=== PATIENT | male | born 2000 | race Caucasian/White ===

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

== ENCOUNTER 2021-04-14 11:27 | Emergency (ER) | payer OTHER, SELFPAY ==
[2021-04-14 11:28] VITALS: BP 104/60; PULSE 68; RESP 18; TEMP 36.8; O2SAT 98; BMI 22.8
--- NOTE | 2021-04-14 11:38 | RAD_ITS ---
STUDY: X-RAY - LEFT KNEE REASON FOR EXAM: Male, 20 years old. fell last night, lateral knee pain TECHNIQUE: 5 view(s) of the knee. COMPARISON: None. FINDINGS: Normal visualized distal femur. Normal visualized proximal tibia and fibula. Normal proximal tibiofibular articulation. Normal medial femorotibial compartment. Normal lateral femorotibial compartment. Normal patellofemoral articulation. The soft tissue structures are unremarkable. RAD/Knee 4 or More Views IMPRESSION: Normal x-ray examination of the knee. Electronically Signed: Kamar Ann MD at 12:21 EDT Tel , Service support ,
--- NOTE | 2021-04-14 12:05 | ED.VIS.LOWEX ---
HPI History of Present Illness Chief Complaint: Lower Extremity Injury Informant: patient Narrative Narrative: 20-year-old male fell down some concrete steps on Thursday night. Injuring the left knee. Is been painful to bear weight. He notes tenderness over the proximal medial knee. States he is not able to fully bend the knee. PFSH PFSH Allergy/AdvReac Type Severity Reaction Status Date / Time No Known Allergies Allergy Verified 04/14/21 11:30 Social History (Updated 04/14/21 @ 12:[address] Prasad Gale, DO) Smoking Status: Never smoker substance use type: does not use ROS ROS ED Constitutional Constitutional ED: Denies chills or weight loss Eyes Eyes: Denies change in vision or diplopia ENT ENT ED: Denies ear pain, rhinorrhea or sore throat Cardiovascular Cardiovascular: Denies chest pain, orthopnea, palpitations or racing heartbeat Respiratory/Chest Respiratory/Chest: Denies cough, dyspnea or orthopnea Gastrointestinal Gastrointestinal: Denies abdominal pain, diarrhea, nausea or vomiting Genitourinary Genitourinary ED: Denies dysuria, hematuria or urinary frequency Musculoskeletal Musculoskeletal: Reports other Details: See history of present illness ; Denies arthralgias or myalgias Integumentary Denies abscess or rash Neurologic Neurologic: Denies headache(s) or weakness Psychiatric Psychiatric: Denies anxiety, depression, suicidal ideation or suicidal thoughts Endocrine Endocrinology: Denies polydipsia, polyphagia or polyuria Allergic/Immunologic Allergic/Immunologic ED: Denies mouth swelling, tongue swelling or urticaria EXAM Physical Exam Const Vital Signs: 04/14/21 11:28 Temperature 98.2 F Temperature Source Temporal Pulse Rate 68 Respiratory Rate 18 Blood Pressure 104/60 Blood Pressure Mean 74 Pulse Ox 98 Oxygen Delivery Method Room Air Positive well nourished and well developed General Appearance ED: well developed HEENT Reports normocephalic, head/scalp atraumatic and moist mucous membranes Eyes PERRL and EOMs intact bilaterally Neck no lymphadenopathy, supple and no JVD Resp normal respiratory effort and clear to auscultation bilaterally Cardio regular rate, regular rhythm and no murmurs GI normal to inspection, nondistended, normoactive bowel sounds and non-tender Palpation: soft Back/Spine no CVA tenderness and normal ROM Extremity Extremity Narrative: Very focal tenderness to palpation over the medial femoral condyle. Negative stress testing of the ligaments. No palpable effusion. General Extremety ED: Negative for edema General Extremity: Negative for edema Neuro oriented x3 and CN's II-XII intact bilaterally Sensorium / Orientation: alert Motor Exam: strength 5/5 throughout Psych mental status grossly normal Mood & Affect: Negative for depressed or tearful Skin no rashes or lesions noted and no wounds MDM MDM MDM Narrative Medical decision making narrative: My interpretation of the plain films of the left knee is no acute fracture. Patient will be discharged home with supportive care. Restrictions to return if worsening or concerns Discharge Plan Triage Chief Complaint: Lower Extremity Injury ED Provider: Prasad Gale Dx/Rx/DC Orders Clinical Impression: Contusion of knee, left Instructions: Bone Contusion Primary Care Provider: Jason Suggs Referrals: Jason Suggs MD [Primary Care Provider] - 10-14 Days if not better Disposition Disposition: Home, Self Care
== END 2021-04-14 12:18 | disposition home or self-care (01) ==
LOC: ED 12:17
PROVIDERS: Emergency Provider Emergency Medicine; PCP Family Medicine
DX: S80.02XA Contusion of left knee, initial encounter (principal); W10.9XXA Fall (on) (from) unspecified stairs and steps, initial encounter
CPT/HCPCS: 73564; 99282

== ENCOUNTER 2021-10-30 09:34 | Emergency (ER) | payer OTHER, SELFPAY ==
[2021-10-30 09:35] VITALS: BP 123/64; PULSE 76; RESP 14; TEMP 37; O2SAT 98; BMI 21.3
--- NOTE | 2021-10-30 09:47 | CT_ITS ---
STUDY: CT ABDOMEN AND PELVIS WITH CONTRAST REASON FOR EXAM: Male, 20 years old. Periumbilical pain with radiation into the right lower quadrant. RADIATION DOSAGE (If Supplied By Facility): CTDIvol = ( 14.19 ) mGy, DLP = ( 743.92 ) mGycm TECHNIQUE: Transaxial images were obtained from the dome of the diaphragm to the symphysis pubis without oral contrast. Oral and amp; IV Gastrografin and amp; 100mL Isovue-300 was administered. Sagittal and coronal images were reconstructed. Individualized dose optimization techniques were used for this CT. COMPARISON: None. FINDINGS: The visualized lung bases are unremarkable. The visualized portions of the heart are within normal limits. Normal liver. Normal gallbladder and extrahepatic biliary system. Normal spleen. Normal pancreas. Normal bilateral adrenal glands. Normal right kidney. Normal left kidney. Normal visualized stomach. Normal small intestine. Normal colon. The appendix is visualized and appears normal. Normal abdominal aorta. Normal inferior vena cava. Normal retroperitoneum. There is diffuse thickening of the urinary bladder wall with increased markings in the surrounding fat. This is suggestive of a cystitis. Normal abdominal wall. Normal osseous structures. CT/Abdomen/Pelvis WITH Contrast IMPRESSION: Findings suggestive of cystitis. Electronically Signed: Aaron Senior MD at 11:56 EDT ,
--- NOTE | 2021-10-30 09:48 | ED.VIS.GI ---
HPI HPI - GI History of Present Illness Chief Complaint: Abd Pain Detail of Chief Complaint: Abdominal pain off-and-on x1 week Informant: patient Narrative Narrative: Patient presents to the emergency department complaint of abdominal pain that he has had for about a week. Patient states that he thinks the pain sometimes goes away or just does not notice it. Pain usually worse in the morning. This morning pain more severe to the right lower quadrant and is worried about his appendix. Patient's had nausea but no vomiting. Patient has had some watery stools intermittently. Patient feels like he is not completely emptying his bowels. Had a small bowel movement yesterday that was watery. He denies any fevers. Food does not seem to affect his pain. Denies loss of appetite. PFSH PFSH Medical History no medical history Allergy/AdvReac Type Severity Reaction Status Date / Time No Known Allergies Allergy Verified 10/30/21 09:35 Surgical History no surgical history Social History (Updated 04/14/21 @ 12:[address] Prasad Gale, DO) Smoking Status: Never smoker substance use type: does not use ROS ROS ED Constitutional Constitutional ED: Reports systems reviewed and no addt'l complaints, except as documented; Denies body ache(s), change in weight or chills Eyes Eyes: Denies acute decrease in peripheral vision, change in vision, double vision or loss of vision ENT ENT ED: Reports none; Denies ear pain, lip swelling, loss taste/smell, neck pain, otalgia or sore throat Cardiovascular Cardiovascular: Reports none; Denies abdominal pain, chest pain with activity, leg edema, lightheadedness, palpitations, rapid heart rate or syncope Respiratory/Chest Respiratory/Chest: Reports none; Denies change in mental status, dry cough, dyspnea, hemoptysis, shortness of breath at rest or shortness of breath with exertion Gastrointestinal Gastrointestinal: Reports none, abdominal pain, diarrhea and nausea; Denies change in stool character, hematemesis, hematochezia, melena, rectal bleeding or vomiting Genitourinary Genitourinary ED: Reports none; Denies abdominal discomfort, anuria, dysuria, genital pain or polyuria Musculoskeletal Musculoskeletal: Reports none; Denies arthralgias, back pain, difficulty walking, extremity pain, muscle weakness or myalgias Integumentary Reports none; Denies abscess or rash Neurologic Neurologic: Reports none; Denies abnormal gait, confusion, focal weakness, frequent falls, headache(s), loss of vision, numbness, paresthesias, radicular pain, vertigo or weakness Psychiatric Psychiatric: Reports systems reviewed and no addt'l complaints, except as documented and none; Denies behavioral changes, confusion, difficulty concentrating, hallucinations, suicidal ideation, tactile hallucinations or visual hallucinations Endocrine Endocrinology: Denies none, cold intolerance, excessive sweating, fatigue or heat intolerance Hematologic/Lymphatic Hematologic/Lymphatic: Reports none; Denies anemia, easy bleeding or easy bruising Allergic/Immunologic Allergic/Immunologic ED: Denies as per HPI, none, lip swelling, mouth swelling, throat swelling, tongue swelling or hives EXAM Physical Exam Const Vital Signs: 10/30/21 09:35 Temperature 98.6 F Temperature Source Temporal Pulse Rate 76 Respiratory Rate 14 Blood Pressure 123/64 H Blood Pressure Mean 83 Pulse Ox 98 Oxygen Delivery Method Room Air Positive well nourished and well developed General Appearance ED: well developed and NAD HEENT Reports TM's clear and moist mucous membranes normocephalic and atraumatic; Negative for trauma or tenderness Tympanic Membrane ED: Yes TM's clear Eyes PERRL and EOMs intact bilaterally General Eye ED: Negative for pale conjunctiva or scleral icterus Neck no lymphadenopathy, supple and no JVD General: Negative for tenderness Chest Wall inspection of chest normal and palpation of chest normal Chest: Negative for tenderness Resp normal respiratory effort and clear to auscultation bilaterally Effort and Inspection: Negative for respiratory distress or pain with movement Auscultation: Negative for rhonchi, wheezes or diminished lung sounds Cardio regular rate, regular rhythm, S1 normal heart sound, S2 normal heart sound and no murmurs Peripheral Pulses: pulses 2+ throughout GI normal to inspection, nondistended, normoactive bowel sounds, soft to palpation, non-distended and no masses GI Narrative: Patient with tenderness palpation over right lower quadrant with guarding. No rebound, rigidity, or peritoneal signs. Back/Spine no CVA tenderness and no thoracic nor lumbar tenderness Extremity normal to inspection General Extremety ED: Negative for edema General Extremity: Negative for edema Neuro oriented x3, CN's II-XII intact bilaterally, no sensory deficits noted and gait normal Sensorium / Orientation: awake, alert, oriented to person, oriented to place and oriented to time Motor Exam: strength 5/5 throughout and strength abnormal Psych mental status grossly normal Skin no rashes or lesions noted and no wounds MDM MDM MDM Narrative Medical decision making narrative: IV line established on arrival. Patient was given Zofran for nausea. He denies anything for pain. Lab work-up was normal. Urinalysis normal. CT scan with IV and p.o. contrast showed a thickened bladder wall with concern for possible cystitis otherwise nothing acute. Given that the patient's urine is normal I do not feel patient has cystitis and the etiology of the bladder wall thickening is unclear. I suspect patient may have a viral gastroenteritis type illness. He did not want thing for nausea for home. He will take ibuprofen or Tylenol for discomfort and he is advised to push fluids. Patient to follow-up with his primary care physician within next 3 to 5 days. Lab Data Attestation: I reviewed the patient's lab results. Labs: Laboratory Results - last 24 hr 10/30/21 10/30/21 10/30/21 09:46 10:10 10:10 WBC 8.5 RBC 5.21 Hgb 16.0 Hct 46.0 MCV 88.3 MCH 30.7 MCHC 34.8 RDW Std Deviation 40.5 RDW Coeff of Emmett 12.3 Plt Count 267 MPV 9.5 Immature Gran % (Auto) 0.200 Neut % (Auto) 64.5 Lymph % (Auto) 22.1 [place] % (Auto) 9.4 Eos % (Auto) 3.3 Baso % (Auto) 0.5 Absolute Neuts (auto) 5.5 Absolute Lymphs (auto) 1.87 Nucleated RBC % 0 Sodium 138 Potassium 4.1 Chloride 101 Carbon Dioxide 32.0 Anion Gap 5 BUN 15 Creatinine 0.95 Estim Creat Clear Calc 114.91 Est GFR (MDRD) Af Amer 128 Est GFR (MDRD) Non-Af 106 BUN/Creatinine Ratio 15.8 Glucose 100 Calcium 9.6 Urine Color Yellow Urine Clarity Clear Urine pH 8.0 Ur Specific [place] 1.015 Urine Protein Negative Urine Glucose (UA) Normal Urine Ketones Negative Urine Occult Blood Negative Urine Nitrite Negative Urine Bilirubin Negative Urine Urobilinogen Normal Ur Leukocyte Esterase Negative Urine RBC 0 SEEN Urine WBC 0 SEEN Ur Squamous Epith Cells 0 SEEN Urine Bacteria 0 SEEN Urine Mucus 0 SEEN Radiography Diagnostic Testing: Clinical Impression(s) from Imaging Studies Abdomen/Pelvis CT 10/30/21 09:47 IMPRESSION: Findings suggestive of cystitis. Electronically Signed: Aaron Senior MD at 11:56 EDT , Discharge Plan Triage Chief Complaint: Abd Pain ED Provider: Susan Pope Dx/Rx/DC Orders Clinical Impression: Abdominal pain Instructions: ED Abdominal Pain Unkn Cause Male..., Viral Gastroenteritis Primary Care Provider: Jason Suggs Referrals: Jason Suggs MD [Primary Care Provider] - 3-5 Days Disposition Disposition: Home, Self Care
[2021-10-30 09:56] LABS: Bacteria 0 SEEN /hpf (None Seen); Mucous, Urine 0 SEEN /hpf (<or=2+); Red Blood Cells-Urine 0 SEEN /hpf (0-5); Squamous Epithelial Cells - UA 0 SEEN /hpf (0-5); White Blood Cells 0 SEEN /hpf (0-5)
[2021-10-30 10:06] LABS: Color, Urine Yellow (Yellow); Glucose, Dipstick Normal (Normal); Ketone-Dipstick Negative (Negative); Leukocyte Esterase-Dipstick Negative /ul (Negative); Nitrite-Dipstick Negative (Negative); Occult Blood-Urine Negative /ul (Negative); Protein-Dipstick Negative (Negative); Specific Gravity, Urine 1.015 (1.002-1.030); Urine Bilirubin Dipstick Negative (Negative); Urine Clarity Clear (Clear); Urine Urobilinogen Normal (Normal)
[2021-10-30] MEDS: Ondansetron 4 MG/2 ML Vial IV (10:13)
[2021-10-30] MEDS: 0.9% Normal Saline 1,000 ML 125 ML IV (10:13)
[2021-10-30 10:19] LABS: Absolute Lymphocyte Count 1.87 X10^3/uL (0.83-4.51); Absolute Neutrophil Count 5.5 X10^3/uL (2.0-7.7); Basophil# 0.04 X10^3/uL; Basophil% 0.5 % (0-1); Eosinophil# 0.28 X10^3/uL; Eosinophils% 3.3 % (0-5); Lymphocyte # 1.87 X10^3/ul (0.83-4.51); Lymphocyte % 22.1 % (19-41); Mean Corp Hgb Conc 34.8 g/dL (32-36); Mean Corpuscular Hgb 30.7 pg (27.0-32.0); Mean Corpuscular Volume 88.3 fL (80-94); Mean Platelet Vol. 9.5 fl (6.2-12.0); Monocyte% 9.4 % (0-10); NRBC Flagged by Analyzer 0 % (0-5); Neutrophil # 5.46 X10^3/uL (2.7-7.7); Neutrophil % 64.5 % (47-70); Platelet Count 267 K/mm3 (150-450); RBC Distribution Width CV 12.3 % (11.6-14.6); RBC Distribution Width SD 40.5 fl (35.1-43.9); Red Blood Count 5.21 M/mm3 (4.6-6.2); White Blood Count 8.5 K/mm3 (4.4-11.0)
[2021-10-30 10:37] LABS: Anion Gap 5 (5-15); BUN 15 mg/dL (7-18); BUN/Creat Ratio 15.8 RATIO (10-20); Calcium,Total 9.6 mg/dL (8.5-10.1); Chloride 101 mmol/L (98-107); Creatinine, Serum 0.95 mg/dL (0.70-1.30); EST Glomerular Filtration Rate 106 mL/min (>60); Est Glom Filt Rate - Afr Amer 128 mL/min (>60); Estimated Creatinine Clearance 114.91 ml/min; Glucose 100 mg/dL (74-106); Potassium 4.1 mmol/L (3.5-5.1); Sodium Level 138 mmol/L (136-145)
== END 2021-10-30 12:27 | disposition home or self-care (01) ==
PROVIDERS: Emergency Provider Emergency Medicine; PCP Family Medicine; Visit Provider Emergency Medicine
DX: R10.31 Right lower quadrant pain (principal); R11.0 Nausea
CPT/HCPCS: 74177; 80048; 81001; 85025; 96361; 96374; 99283; J7030; Q9967; A4216; J2405

== ENCOUNTER → 2022-07-01 | Outpatient (CLI) | payer OTHER, SELFPAY ==
--- NOTE | 2022-07-01 18:40 | RAD_ITS ---
STUDY: X-RAY CHEST REASON FOR EXAM: Male, 21 years old. CHRONIC COUGH TECHNIQUE: PA and lateral views of the chest. COMPARISON: April 02, 2014 FINDINGS: The lungs are clear and hyper expanded. There is no demonstrated pleural abnormality. Normal size heart. Normal mediastinum and paras. Normal visualized pulmonary arteries. Normal visualized aortic arch and descending thoracic aorta. Normal visualized thoracic spine. Normal visualized ribs, clavicles, and shoulders. There is no demonstrated abnormality of the visualized soft tissue structures of the upper abdomen. RAD/Chest PA and Lateral IMPRESSION: Stable hyperexpansion. No focal infiltrate. Electronically Signed: Derrick Proctor MD at 19:54 EST ,
== END | disposition home or self-care (01) ==
LOC: RAD 18:36
PROVIDERS: PCP Family Medicine; Visit Provider Family Medicine
DX: R05.3 Chronic cough (principal)
CPT/HCPCS: 71046

== ENCOUNTER → 2022-08-06 | Outpatient (CLI) | payer OTHER, SELFPAY ==
[2022-08-06 15:08] LABS: Absolute Lymphocyte Count 1.95 X10^3/uL (0.83-4.51); Absolute Neutrophil Count 3.2 X10^3/uL (2.0-7.7); Basophil# 0.07 X10^3/uL; Eosinophil# 1.42 X10^3/uL; Eosinophils% 19.6 % (0-5); Hematocrit 46.4 % (40-54); Hemoglobin 15.3 g/dL (13.0-16.5); Lymphocyte # 1.95 X10^3/ul (0.83-4.51); Lymphocyte % 26.9 % (19-41); Mean Corpuscular Hgb 29.2 pg (27.0-32.0); Mean Corpuscular Volume 88.5 fL (80-94); Mean Platelet Vol. 9.9 fl (6.2-12.0); Monocyte# 0.63 X10^3/uL; Monocyte% 8.7 % (0-10); NRBC Flagged by Analyzer 0 % (0-5); Neutrophil # 3.18 X10^3/uL (2.7-7.7); Neutrophil % 43.7 % (47-70); Platelet Count 236 K/mm3 (150-450); RBC Distribution Width SD 42.1 fl (35.1-43.9); Red Blood Count 5.24 M/mm3 (4.6-6.2); White Blood Count 7.3 K/mm3 (4.4-11.0)
[2022-08-06 15:41] LABS: ALB/GLOB Ratio 1.4 RATIO (0.9-2.4); AST(SGOT) 19 U/L (15-37); Alanine Aminotransfer ALT/SGPT 31 U/L (16-61); Albumin, Serum 4.2 g/dL (3.2-5.0); Alkaline Phosphatase 78 U/L (45-117); Anion Gap 4 (5-15); BUN 11 mg/dL (7-18); BUN/Creat Ratio 11.1 RATIO (10-20); Calcium,Total 9.5 mg/dL (8.5-10.1); Chloride 104 mmol/L (98-107); Creatinine, Serum 0.99 mg/dL (0.70-1.30); EST Glomerular Filtration Rate 100 mL/min (>60); Est Glom Filt Rate - Afr Amer 121 mL/min (>60); Glucose 84 mg/dL (74-106); Potassium 4.5 mmol/L (3.5-5.1); Protein, Total 7.2 g/dL (6.4-8.2); Sodium Level 139 mmol/L (136-145); Thyroid Stim Hormone (TSH) 0.74 uIU/mL (0.358-3.74)
== END | disposition home or self-care (01) ==
LOC: MTLAB 12:32
PROVIDERS: PCP Family Medicine; Referring Provider Family Medicine; Visit Provider Family Medicine
DX: R05.3 Chronic cough (principal)
CPT/HCPCS: 36415; 80053; 84443; 85025

== ENCOUNTER 2023-01-06 19:58 | Emergency (ER) | payer OTHER, SELFPAY ==
[2023-01-06 19:59] VITALS: BP 133/70; PULSE 95; RESP 16; TEMP 37.2; O2SAT 98; BMI 21.2
[2023-01-06 20:27] LABS: Bacteria 0 SEEN /hpf (None Seen); Mucous, Urine 0 SEEN /hpf (<or=2+); White Blood Cells 0 SEEN /hpf (0-5)
[2023-01-06 20:34] LABS: Color, Urine Straw (Yellow); Glucose, Dipstick Normal (Normal); Ketone-Dipstick Negative (Negative); Leukocyte Esterase-Dipstick Negative /ul (Negative); Nitrite-Dipstick Negative (Negative); Occult Blood-Urine 25 /ul (Negative); Protein-Dipstick 30 mg/dl (Negative); Specific Gravity, Urine 1.005 (1.002-1.030); Urine Bilirubin Dipstick Negative (Negative); Urine Clarity Sl. Cloudy (Clear); Urine Urobilinogen Normal (Normal); Urine pH 6.5 (5.0 - 8.0)
[2023-01-06 20:40] LABS: Red Blood Cells-Urine 0-5 SEEN /hpf (0-5); Squamous Epithelial Cells - UA 0-5 SEEN /hpf (0-5)
[2023-01-06 20:41] LABS: Amorphous Sediment 1+ URATE
--- NOTE | 2023-01-06 20:43 | CT_ITS ---
STUDY: CT ABDOMEN AND PELVIS WITHOUT CONTRAST REASON FOR EXAM: Male, 22 years old. Kidney Stone RADIATION DOSAGE (If Supplied By Facility): CTDIvol = ( 6.04 ) mGy, DLP = ( 286.91 ) mGycm TECHNIQUE: Transaxial images were obtained from the dome of the diaphragm to the symphysis pubis without oral contrast, and without intravenous contrast. Sagittal and coronal images were reconstructed. Individualized dose optimization techniques were used for this CT. COMPARISON: December 30, 2022. FINDINGS: The visualized lung bases are unremarkable. The visualized portions of the heart are within normal limits. Normal liver. Normal gallbladder and extrahepatic biliary system. Normal spleen. Normal pancreas. Normal bilateral adrenal glands. No evidence for right renal obstruction or mass effect. Tiny nonobstructing calculus in the upper pole left kidney. No evidence for renal obstruction or mass.. Normal visualized stomach. Nonspecific ileus with diffuse fecal retention throughout the colon.. No evidence for acute appendicitis Normal abdominal aorta. Normal inferior vena cava. Normal retroperitoneum. Normal urinary bladder. Trace of free fluid in the pelvis on the right of uncertain etiology and clinical significance Normal abdominal wall. Normal osseous structures. CT/Abdomen/Pelvis without Cont IMPRESSION: Left nephrolithiasis without evidence for hydronephrosis or ureteral calculus.. Nonspecific ileus with diffuse fecal retention in the colon. Trace of fluid in the right pelvis of indeterminate etiology and clinical significance.. Electronically Signed: Ventura Benavidez MD at 21:29 EDT ,
[2023-01-06 20:49] LABS: Absolute Lymphocyte Count 1.69 X10^3/uL (0.83-4.51); Basophil# 0.03 X10^3/uL; Basophil% 0.2 % (0-1); Eosinophil# 0.18 X10^3/uL; Eosinophils% 1.5 % (0-5); Hematocrit 46.1 % (40-54); Hemoglobin 15.5 g/dL (13.0-16.5); Lymphocyte # 1.69 X10^3/ul (0.83-4.51); Mean Corp Hgb Conc 33.6 g/dL (32-36); Mean Corpuscular Volume 89.2 fL (80-94); Mean Platelet Vol. 10.1 fl (6.2-12.0); Monocyte# 1.11 X10^3/uL; Monocyte% 9.2 % (0-10); NRBC Flagged by Analyzer 0 % (0-5); Neutrophil # 8.99 X10^3/uL (2.7-7.7); Neutrophil % 74.7 % (47-70); Platelet Count 225 K/mm3 (150-450); RBC Distribution Width CV 12.4 % (11.6-14.6); RBC Distribution Width SD 41.1 fl (35.1-43.9); Red Blood Count 5.17 M/mm3 (4.6-6.2); White Blood Count 12.1 K/mm3 (4.4-11.0)
[2023-01-06 20:57] LABS: Anion Gap 9 (5-15); BUN 14 mg/dL (7-18); BUN/Creat Ratio 12.7 RATIO (10-20); Calcium,Total 9.3 mg/dL (8.5-10.1); Chloride 106 mmol/L (98-107); EST Glomerular Filtration Rate 89 mL/min (>60); Est Glom Filt Rate - Afr Amer 108 mL/min (>60); Estimated Creatinine Clearance 97.32 ml/min; Glucose 177 mg/dL (74-106); Potassium 3.7 mmol/L (3.5-5.1); Sodium Level 140 mmol/L (136-145)
--- NOTE | 2023-01-06 21:07 | EDS_ITS ---
HPI HPI - GI History of Present Illness Chief Complaint: Flank Pain Narrative Narrative: 22-year-old male presenting with right flank/right left-sided abdominal pain since this morning. He states he woke up at about 630. He is felt nauseous from time to time. He has not vomited. No diarrhea or constipation. No history of kidney stones. No dysuria or hematuria. No fever or chills. He states he is otherwise healthy. [facility] Medical History Asthma Home Medications polyethylene glycol 3350 17 gram oral powder packet (Miralax) 17 g PO DAILY PRN constipation #14 ea 01/06/23 [Rx Last Taken Unknown] Allergy/AdvReac Type Severity Reaction Status Date / Time No Known Allergies Allergy Verified 01/06/23 20:01 Social History Smoking Status: Never smoker substance use type: does not use ROS ROS ED Constitutional Constitutional ED: Denies chills, fever(s) or sweats Eyes Eyes: Denies blurry vision or change in vision ENT ENT ED: Denies ear pain or sore throat Cardiovascular Cardiovascular: Denies chest pain, palpitations or racing heartbeat Respiratory/Chest Respiratory/Chest: Denies cough, dyspnea or sputum Gastrointestinal Gastrointestinal: Reports abdominal pain and nausea; Denies constipation, diarrhea or vomiting Genitourinary Genitourinary ED: Denies dysuria, hematuria or urinary frequency Musculoskeletal Musculoskeletal: Reports back pain; Denies arthralgias, myalgias or neck pain Integumentary Denies abscess, Abrasions or rash Neurologic Neurologic: Denies headache(s), paresthesias or weakness Psychiatric Psychiatric: Denies anxiety, depression, suicidal ideation or suicidal thoughts Endocrine Endocrinology: Denies polydipsia or polyuria EXAM Physical Exam Const Vital Signs: 01/06/23 19:59 01/06/23 20:13 Temperature 99.0 F Temperature Source Temporal Pulse Rate 95 Respiratory Rate 16 Respiratory Effort Normal Non-Labored Respiratory Pattern Normal Blood Pressure 133/70 H Blood Pressure Mean 91 Pulse Ox 98 Oxygen Delivery Method Room Air Positive well nourished General Appearance ED: Negative for pallor HEENT Reports moist mucous membranes Eyes PERRL and EOMs intact bilaterally Resp normal respiratory effort Auscultation: Negative for rales, rhonchi or wheezes Cardio regular rate and regular rhythm GI Palpation: tender RLQ Back/Spine General Back: CVA tenderness right Neuro CN's II-XII intact bilaterally Sensorium / Orientation: alert Psych mental status grossly normal Skin General Skin Exam: Negative for jaundice or pallor MDM MDM MDM Narrative Medical decision making narrative: Patient presenting with right-sided flank pain. No history of kidney stones. He does have some mild CVA tenderness and right lower quadrant tenderness. Patient medicated with Toradol and Zofran. Differential includes kidney stone, UTI, pyelonephritis, colitis, appendicitis. CBC to be obtained to assess white blood cell count, hemoglobin, platelets, differential. BMP to assess renal function, electrolytes, glucose, anion gap. Urinalysis to assess for UTI versus occult blood. CBC shows mild leukocytosis 12.1. Hemoglobin hematocrit are stable. Platelets are normal. Renal function electrolytes within normal limits. Urinalysis shows some 25 occult blood. No evidence of infection. CT of the abdomen pelvis without contrast shows no kidney stones. CT negative for appendicitis as well. CT does show diffuse fecal retention. Patient was counseled on this. Patient be started on MiraLAX for home. Return precautions were discussed. Impression: 1. Constipation 2. Flank pain 3. Abdominal pain Lab Data Labs: Laboratory Results - last 24 hr 01/06/23 01/06/23 01/06/23 20:10 20:10 20:24 WBC 12.1 H RBC 5.17 Hgb 15.5 Hct 46.1 MCV 89.2 MCH 30.0 MCHC 33.6 RDW Std Deviation 41.1 RDW Coeff of [place] 12.4 Plt Count 225 MPV 10.1 Immature Gran % (Auto) 0.400 Neut % (Auto) 74.7 H Lymph % (Auto) 14.0 L [place] % (Auto) 9.2 Eos % (Auto) 1.5 Baso % (Auto) 0.2 Absolute Neuts (auto) 9.0 H Absolute Lymphs (auto) 1.69 Nucleated RBC % 0 Sodium 140 Potassium 3.7 Chloride 106 Carbon Dioxide 25.0 Anion Gap 9 BUN 14 Creatinine 1.10 Estim Creat Clear Calc 97.32 Est GFR (MDRD) Af Amer 108 Est GFR (MDRD) Non-Af 89 BUN/Creatinine Ratio 12.7 Glucose 177 H Calcium 9.3 Urine Color Straw Urine Clarity Sl. Cloudy Urine pH 6.5 Ur Specific [place] 1.005 Urine Protein 30 H Urine Glucose (UA) Normal Urine Ketones Negative Urine Occult Blood 25 H Urine Nitrite Negative Urine Bilirubin Negative Urine Urobilinogen Normal Ur Leukocyte Esterase Negative Urine RBC 0-5 SEEN Urine WBC 0 SEEN Ur Squamous Epith Cells 0-5 SEEN Amorphous Sediment 1+ URATE Urine Bacteria 0 SEEN Urine Mucus 0 SEEN Radiography Diagnostic Testing: Clinical Impression(s) from Imaging Studies Abdomen/Pelvis CT 01/06/23 20:43 IMPRESSION: Left nephrolithiasis without evidence for hydronephrosis or ureteral calculus.. Nonspecific ileus with diffuse fecal retention in the colon. Trace of fluid in the right pelvis of indeterminate etiology and clinical significance.. Electronically Signed: Ventura Benavidez MD at 21:29 EDT Reading Location ID and State: [address] [address] , Service support , Discharge Plan Triage Chief Complaint: Flank Pain ED Provider: Kalyan Rojas Dx/Rx/DC Orders Instructions: ED Constipation (Adult), ED Flank Pain, Uncertain Cause Prescriptions: New polyethylene glycol 3350 [Miralax] 17 gram powder in packet 17 g PO DAILY PRN (Reason: constipation) Qty: 14 0RF Primary Care Provider: Sonia Cyr Referrals: Sonia Cyr MD [Primary Care Provider] - Disposition Disposition: Home, Self Care
[2023-01-06] MEDS: Ketorolac 15 MG/ML Vial IV (21:18)
[2023-01-06] MEDS: Ondansetron 4 MG/2 ML Vial IV (21:19)
== END 2023-01-06 22:45 | disposition home or self-care (01) ==
PROVIDERS: Emergency Provider Student in an Organized Health Care Education/Training Program; PCP Family Medicine; Visit Provider Student in an Organized Health Care Education/Training Program
DX: K59.00 Constipation, unspecified (principal); J45.909 Unspecified asthma, uncomplicated
CPT/HCPCS: 74176; 80048; 81001; 85025; 96374; 96375; 99284; A4216; J2405

== ENCOUNTER 2023-01-08 11:12 | Emergency (ER) | payer OTHER, SELFPAY ==
[2023-01-08 11:13] VITALS: BP 146/74; PULSE 68; RESP 16; TEMP 36.6; O2SAT 98; BMI 21.4
[2023-01-08] MEDS: Ondansetron 4 MG/2 ML Vial IV (12:09)
[2023-01-08] MEDS: Morphine 4 MG/ML Syringe IV ×2 (12:10→13:46)
[2023-01-08] MEDS: 0.9% Normal Saline 1,000 ML 1000 ML IV (12:11)
[2023-01-08 12:20] LABS: Bacteria 0 SEEN /hpf (None Seen); Mucous, Urine 0 SEEN /hpf (<or=2+); Squamous Epithelial Cells - UA 0 SEEN /hpf (0-5); White Blood Cells 0 SEEN /hpf (0-5)
--- NOTE | 2023-01-08 12:23 | CT_ITS ---
STUDY: CT ABDOMEN AND PELVIS WITH CONTRAST REASON FOR EXAM: Male, 22 years old. Right flank pain. Vomiting. RADIATION DOSAGE (If Supplied By Facility): CTDIvol = ( 7.26 ) mGy, DLP = ( 756.97 ) mGycm TECHNIQUE: Transaxial images were obtained from the dome of the diaphragm to the symphysis pubis with oral contrast. Oral and amp; IV Gastrografin and amp; 100mL Isovue-300 was administered. Sagittal and coronal images were reconstructed. Individualized dose optimization techniques were used for this CT. COMPARISON: Comparison is made with prior study dated January 06, 2023. FINDINGS: The visualized lung bases are unremarkable. The visualized portions of the heart are within normal limits. Normal liver. Normal gallbladder and extrahepatic biliary system. Borderline splenomegaly. Normal pancreas. Normal bilateral adrenal glands. Normal right kidney. Normal left kidney. Normal visualized stomach. Normal small intestine. Is evidence of thickening of the wall of the colon. This is suggestive of colitis. The appendix is visualized and appears normal. Normal abdominal aorta. Normal inferior vena cava. Normal retroperitoneum. Distended urinary bladder. Stable small amount of free fluid in the posterior right hemipelvis. Central prostatic calcification. Normal abdominal wall. Normal osseous structures. CT/Abdomen/Pelvis WITH Contrast IMPRESSION: Findings suggestive of colitis. Tiny amount of free fluid in the posterior right pelvis. Electronically Signed: Aaron Senior MD at 14:21 EDT ,
[2023-01-08 12:26] LABS: Absolute Lymphocyte Count 1.32 X10^3/uL (0.83-4.51); Absolute Neutrophil Count 9.1 X10^3/uL (2.0-7.7); Basophil# 0.02 X10^3/uL; Basophil% 0.2 % (0-1); Eosinophil# 0.07 X10^3/uL; Eosinophils% 0.6 % (0-5); Hematocrit 46.9 % (40-54); Hemoglobin 15.9 g/dL (13.0-16.5); Lymphocyte # 1.32 X10^3/ul (0.83-4.51); Lymphocyte % 11.4 % (19-41); Mean Corp Hgb Conc 33.9 g/dL (32-36); Mean Corpuscular Hgb 30.8 pg (27.0-32.0); Mean Corpuscular Volume 90.7 fL (80-94); Mean Platelet Vol. 9.7 fl (6.2-12.0); Monocyte# 1.08 X10^3/uL; Monocyte% 9.3 % (0-10); NRBC Flagged by Analyzer 0 % (0-5); Neutrophil # 9.07 X10^3/uL (2.7-7.7); Neutrophil % 78.1 % (47-70); Platelet Count 222 K/mm3 (150-450); RBC Distribution Width CV 12.7 % (11.6-14.6); RBC Distribution Width SD 42.5 fl (35.1-43.9); Red Blood Count 5.17 M/mm3 (4.6-6.2); White Blood Count 11.6 K/mm3 (4.4-11.0)
[2023-01-08 12:36] LABS: Color, Urine Yellow (Yellow); Glucose, Dipstick Normal (Normal); Ketone-Dipstick Negative (Negative); Leukocyte Esterase-Dipstick Negative /ul (Negative); Nitrite-Dipstick Negative (Negative); Occult Blood-Urine 25 /ul (Negative); Protein-Dipstick 15 mg/dl (Negative); Specific Gravity, Urine 1.005 (1.002-1.030); Urine Bilirubin Dipstick Negative (Negative); Urine Clarity Clear (Clear); Urine Urobilinogen Normal (Normal)
[2023-01-08 12:42] LABS: ALB/GLOB Ratio 1.1 RATIO (0.9-2.4); AST(SGOT) 19 U/L (15-37); Alanine Aminotransfer ALT/SGPT 20 U/L (16-61); Albumin, Serum 3.9 g/dL (3.2-5.0); Alkaline Phosphatase 69 U/L (45-117); Anion Gap 4 (5-15); BUN 10 mg/dL (7-18); BUN/Creat Ratio 7.6 RATIO (10-20); Calcium,Total 9.4 mg/dL (8.5-10.1); Chloride 106 mmol/L (98-107); Creatinine, Serum 1.31 mg/dL (0.70-1.30); EST Glomerular Filtration Rate 73 mL/min (>60); Est Glom Filt Rate - Afr Amer 88 mL/min (>60); Globulin 3.4 g/dL (2.2-4.2); Glucose 104 mg/dL (74-106); Lipase 44 U/L (13-75); Potassium 3.6 mmol/L (3.5-5.1); Protein, Total 7.3 g/dL (6.4-8.2); Sodium Level 140 mmol/L (136-145)
[2023-01-08 12:47] LABS: Red Blood Cells-Urine 0-5 SEEN /hpf (0-5)
[2023-01-08 13:12] VITALS: RESP 18
--- NOTE | 2023-01-08 15:11 | ED.VIS.GI ---
HPI HPI - GI History of Present Illness Chief Complaint: Flank Pain Narrative Narrative: Patient presents with right flank pain that started sometime Thursday morning. It is in the side and radiates down toward the right lower quadrant. He has had intermittent nausea and then last night he had some vomiting. He had some sense of chills but no measured fever. No urinary changes. He was seen for this. The scan hinted of possible constipation. He tried a laxative and some MiraLAX. He has had several moist bowel movements but no large stool. He returns because he is still having pain. It is a little better now but was worse last night. He has not had any abdominal surgery. No history of kidney stones although his recent scan showed a small 1 in the superior left pole which is opposite where he is having his pain. No blood in the stool. No blood in the urine. No known history of Crohn's or ulcerative colitis. [facility] Medical History Asthma Home Medications polyethylene glycol 3350 17 gram oral powder packet (Miralax) 17 g PO DAILY PRN constipation #14 ea 01/06/23 [Rx Last Taken Unknown] amoxicillin 875 mg-potassium clavulanate 125 mg tablet 875 mg PO Q12H #20 TABLETS 01/08/23 [Rx Last Taken Unknown] dicyclomine 10 mg capsule 20 mg PO TIDAC #20 CAPSULES 01/08/23 [Rx Last Taken Unknown] ondansetron 4 mg disintegrating tablet 4 mg PO Q8H PRN PRN Nausea #10 tabs 01/08/23 [Rx Last Taken Unknown] Allergy/AdvReac Type Severity Reaction Status Date / Time No Known Allergies Allergy Verified 01/08/23 11:14 Social History Smoking Status: Never smoker substance use type: does not use ROS ROS ED ROS Narrative A complete review of systems was performed and is negative except as documented in the history of present illness. Some specific details below. Constitutional: No recent fevers but he has had some chills. EYE: No icterus ENT: No difficulty swallowing. No swelling. No pain. No significant history of GERD. CV: No chest pain or palpitations. Respiratory: No dyspnea. No hemoptysis. No difficulty taking breaths. GI: Please see history of present illness. : No frequency dysuria or hematuria. Musculoskeletal: No recent trauma. No pains. Skin: No rash. Nondiaphoretic. Neuro: No weakness or numbness. Endocrine: No polyuria or polydipsia. EXAM Physical Exam Narrative Exam Narrative: CONSTITUTIONAL: Patient is nontoxic in appearance. The patient looks comfortable. HEENT: No notable trauma. Mucous membranes mildly dry. EYES: No conjunctival injection. No icterus. CARDIOVASCULAR: Regular rate. Regular rhythm. No notable murmur. No JVD. RESPIRATORY: No respiratory distress. Breathing is unlabored. No wheezes. No rhonchi. No rales. No pain with a deep breath. GASTROINTESTINAL: Not distended. Bowel sounds are normal. He has very minimal tenderness along the right lower quadrant region. Its not isolated to McBurney's. I feel no mass. There is no rebound or guarding. There is 1 area on his right CVA that is tender but even tender to softer palpation. I see no skin changes rash redness or vesicles. GENITOURINARY: No tenderness over the bladder. As above, focal right-sided CVA tenderness. MUSCULOSKELETAL: Atraumatic. No peripheral edema. No cord. No tenderness along the deep venous system. No asymmetry. NEUROLOGICAL: Patient is alert and appropriate. No focal deficit noted. SKIN: No noted rashes. No vesicles PSYCHIATRIC: Patient is calm. Mood is appropriate. Const Vital Signs: 01/08/23 11:13 01/08/23 11:55 Temperature 98 F Temperature Source Temporal Pulse Rate 68 Respiratory Rate 16 Respiratory Effort Normal Non-Labored Respiratory Pattern Normal Blood Pressure 146/74 H Blood Pressure Mean 98 Pulse Ox 98 Oxygen Delivery Method Room Air MDM MDM MDM Narrative Medical decision making narrative: My independent interpretation of the patient's CT shows no sign of obstruction or ileus. Final reading does show suspicion for possible mild colitis with a little bit of fluid toward the right hemipelvis area. Patient's white count is slightly down from yesterday at 11 6. Patient's electrolytes do show elevated creatinine but he also has not been drinking as much and was vomiting. He was given IV fluids here. Liver function tests were normal other than mild elevation of the total bilirubin at 1.6. But he is not having upper abdominal pain and CT shows no hepatic issues. Lipase was normal. This can be followed as an outpatient. Patient's urine shows no acute process. I discussed options with the patient. We have tried him on symptomatic treatment at home. He seems to have gotten a little bit worse last night although today he seems to slight bit better. But he has had chills at home. He has signs of some colitis and a little bit of fluid. Since he has returned and is not getting better we will add antibiotics at this point. I will add Reglan. He is encouraged to stay on the MiraLAX to keep this stools soft. He can wean off this slowly. He should go to a liquid diet and then slowly increase to a BRAT diet and then slowly increase to normal. He should return with worsening pain, vomiting, fevers or other concerns. I recommend follow-up with gastroenterology or his primary physician. Lab Data Attestation: I reviewed the patient's lab results. Labs: Laboratory Results - last 24 hr 01/08/23 01/08/23 01/08/23 12:05 12:05 12:05 WBC 11.6 H RBC 5.17 Hgb 15.9 Hct 46.9 MCV 90.7 MCH 30.8 MCHC 33.9 RDW Std Deviation 42.5 RDW Coeff of Emmett 12.7 Plt Count 222 MPV 9.7 Immature Gran % (Auto) 0.400 Neut % (Auto) 78.1 H Lymph % (Auto) 11.4 L [place] % (Auto) 9.3 Eos % (Auto) 0.6 Baso % (Auto) 0.2 Absolute Neuts (auto) 9.1 H Absolute Lymphs (auto) 1.32 Nucleated RBC % 0 Sodium 140 Potassium 3.6 Chloride 106 Carbon Dioxide 30.0 Anion Gap 4 L BUN 10 Creatinine 1.31 H Estim Creat Clear Calc 82.50 Est GFR (MDRD) Af Amer 88 Est GFR (MDRD) Non-Af 73 BUN/Creatinine Ratio 7.6 L Glucose 104 Calcium 9.4 Total Bilirubin 1.60 H AST 19 ALT 20 Alkaline Phosphatase 69 Total Protein 7.3 Albumin 3.9 Globulin 3.4 Albumin/Globulin Ratio 1.1 Lipase 44 Urine Color Yellow Urine Clarity Clear Urine pH 7.0 Ur Specific [place] 1.005 Urine Protein 15 H Urine Glucose (UA) Normal Urine Ketones Negative Urine Occult Blood 25 H Urine Nitrite Negative Urine Bilirubin Negative Urine Urobilinogen Normal Ur Leukocyte Esterase Negative Urine RBC 0-5 SEEN Urine WBC 0 SEEN Ur Squamous Epith Cells 0 SEEN Urine Bacteria 0 SEEN Urine Mucus 0 SEEN Radiography Diagnostic Testing: Clinical Impression(s) from Imaging Studies Abdomen/Pelvis CT 01/08/23 12:23 IMPRESSION: Findings suggestive of colitis. Tiny amount of free fluid in the posterior right pelvis. Electronically Signed: Aaron Senior MD at 14:21 EDT , Discharge Plan Triage Chief Complaint: Flank Pain ED Provider: Jonathan Bose Dx/Rx/DC Orders Clinical Impression: Abdominal pain, Colitis Instructions: ED Understanding Colitis Prescriptions: New ondansetron [ondansetron] 4 mg tablet,disintegrating 4 mg PO Q8H PRN PRN (Reason: Nausea) Qty: 10 0RF dicyclomine 10 mg capsule 20 mg PO TIDAC Qty: 20 0RF amoxicillin-pot clavulanate [amoxicillin-pot clavulanate] 875-125 mg tablet 875 mg PO Q12H Qty: 20 0RF No Action polyethylene glycol 3350 [Miralax] 17 gram powder in packet 17 g PO DAILY PRN (Reason: constipation) Qty: 14 0RF Primary Care Provider: Sonia Cyr Referrals: Sonia Cyr MD [Primary Care Provider] - 1-2 Days if not improving Friend,Franki, DO [Med Staff - Active Staff] - As soon as possible Disposition Disposition: Home, Self Care
[2023-01-08 15:12] VITALS: RESP 18
== END 2023-01-08 15:40 | disposition home or self-care (01) ==
PROVIDERS: Emergency Provider Emergency Medicine; PCP Family Medicine; Visit Provider Emergency Medicine
DX: R10.31 Right lower quadrant pain (principal); K52.9 Noninfective gastroenteritis and colitis, unspecified; R68.83 Chills (without fever)
CPT/HCPCS: 74177; 80053; 81001; 83690; 85025; 87086; 96361; 96374; 96375; 96376; 99283; J7030; Q9967; A4216; J2405

== ENCOUNTER 2023-01-16 09:13 | Day surgery (SDC) | payer OTHER, SELFPAY ==
[2023-01-16] VITALS (7 sets, daily range): BP systolic 97–118; BP diastolic 65–77; PULSE 53–89; RESP 16; TEMP 36.2–36.9; O2SAT 96–100; BMI 20.5
--- NOTE | 2023-01-16 | GASB_PTH ---
PATIENT: FARHAN ISABEL LOC: [facility] [place] U#:[id number] AGE/SX: 22/M ROOM: RE01/16/[address]: Dr. Parker Lin MD : 2000 BED: DIS: 01/16/2023 SPEC #: [id number] RECD: 01/16/23 13:14 STATUS: JOSE FRANCISCO PACHECODana #: [id number] RADHA: 01/16/23 00:[address]: Parker Lin DEPT: SURGICAL PATHOLOGY RECD BY: Artie Zapata ENTERED: 01/16/23 13:16 SP TYPE: Gastric Bx OTHR DR: Dr. Sonia Cyr MD Tissues: A - Duodenum, NOS B - Gastric mucous membrane C - Gastric mucous membrane D - Gastric mucous membrane E - Esophageal mucous membrane F - Right colon G - Transverse colon H - Transverse colon I - Sigmoid colon biopsy Procedures: Special Stain Group II Surgery Specimen Level IV Alcian Blue/PAS (control) HEADER OPERATION: Colonoscopy with biopsies, EGD (MAC) with biopsies PRE-OP DIAGNOSIS: Colitis, abdominal pain TISSUE SUBMITTED: A ? Duodenum, B ? Fundus, C ? Antrum for H. pylori and path, D - Gastroesophageal junction, E ? Mid esophagus, F ? Right colon biopsy, G ? Proximal transverse biopsy, H ? Mid transverse biopsy, I ? Sigmoid biopsy MICROSCOPIC DIAGNOSIS A. Duodenum, biopsy: A fragment of duodenal mucosa, no pathologic diagnosis. B. Fundus, biopsy: Mild gastritis. See microscopic description. C. Antrum, biopsy: Mild gastritis. See microscopic description and comment. D. Gastroesophageal junction, biopsy: Fragments of gastroesophageal mucosa with chronic inflammation. Intestinal metaplasia (goblet cell metaplasia) not identified. See comment. E. Mid esophagus, biopsy: A fragment of benign squamous epithelium. F. Right colon, biopsy: Fragments of colonic mucosa, no pathologic diagnosis. G. Proximal transverse colon, biopsy: A fragment of colonic mucosa, no pathologic diagnosis. H. Mid transverse, biopsy: A fragment of colonic mucosa, no pathologic diagnosis. I. Sigmoid, biopsy: A fragment of colonic mucosa with mild mucosal congestion and hemorrhage. SJ:wendie 01/19/2023 COMMENT C. The results of immunohistochemistry for Helicobacter pylori will be reported separately ([id number]). D. Alcian blue/PAS stain with matched control is used in the evaluation of the specimen. The specimen predominantly consists of squamous mucosa. MICROSCOPIC DESCRIPTION Slides are reviewed. B & C. The specimen shows fragments of gastric mucosa with chronic inflammatory cell infiltrates in the lamina propria consisting of lymphocytes and plasma cells, consistent with mild chronic gastritis. GROSS DESCRIPTION A - Received in fixative is one container labeled with the patient's name and designated duodenum. The specimen consists of one irregular fragment of light landis soft tissue that measures 0.4 x 0.3 x 0.1 cm. The specimen is totally submitted in one cassette. B - Received in fixative is one container labeled with the patient's name and designated fundus. The specimen consists of one irregular fragment of light landis soft tissue that measures 0.3 x 0.3 x 0.1 cm. The specimen is totally submitted in one cassette. C - Received in fixative is one container labeled with the patient's name and designated antrum. The specimen consists of one irregular fragment of light landis soft tissue that measures 0.4 x 0.2 x 0.1 cm. The specimen is totally submitted in one cassette. D - Received in fixative is one container labeled with the patient's name and designated GE junction. The specimen consists of multiple irregular fragments of light landis soft tissue that in aggregate measure 0.6 x 0.6 x 0.1 cm. The specimen is totally submitted in one cassette. E - Received in fixative is one container labeled with the patient's name and designated mid esophagus. The specimen consists of one irregular fragment of light landis soft tissue that measures 0.3 x 0.1 x 0.1 cm. The specimen is totally submitted in one cassette. F - Received in fixative is one container labeled with the patient's name and designated right colon biopsy. The specimen consists of two irregular fragments of light landis soft tissue that in aggregate measure 1.0 x 0.3 x 0.1 cm. The specimen is totally submitted in one cassette. G - Received in fixative is one container labeled with the patient's name and designated proximal transverse biopsy. The specimen consists of one irregular fragment of light landis soft tissue that measures 0.3 x 0.3 x 0.1 cm. The specimen is totally submitted in one cassette. H - Received in fixative is one container labeled with the patient's name and designated mid transverse biopsy. The specimen consists of one irregular fragment of light landis soft tissue that measures 0.7 x 0.2 x 0.1 cm. The specimen is totally submitted in one cassette. I - Received in fixative is one container labeled with the patient's name and designated sigmoid biopsy. The specimen consists of one irregular fragment of light landis soft tissue that measures 0.3 x 0.2 x 0.1 cm. The specimen is totally submitted in one cassette. / SJ:rg 01/16/2023 TC:3 CPT: 59972 x9, 14186
[2023-01-16] MEDS: Lactated Ringers 1,000 ML 15 ML IV (09:20)
--- NOTE | 2023-01-16 09:38 | PCM.HP.BLA ---
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 Is patient in pain?: No Allergies No Known Allergies Allergy (Verified 01/13/23 14:12) Medications polyethylene glycol 3350 17 gram oral powder packet (Miralax) 17 g PO DAILY PRN constipation #14 ea 01/06/23 [Rx Confirmed 01/13/23] amoxicillin 875 mg-potassium clavulanate 125 mg tablet 875 mg PO Q12H #20 TABLETS 01/08/23 [Rx Confirmed 01/13/23] dicyclomine 10 mg capsule 20 mg PO TIDAC #20 CAPSULES 01/08/23 [Rx Confirmed 01/13/23] ondansetron 4 mg disintegrating tablet 4 mg PO Q8H PRN PRN Nausea #10 tabs 01/08/23 [Rx Confirmed 01/13/23] albuterol sulfate 90 mcg/actuation aerosol inhaler gm inhalation 01/13/23 [History Confirmed 01/13/23] fluticasone propionate 110 mcg/actuation HFA aerosol inhaler (Flovent HFA) gm inhalation 01/13/23 [History Confirmed 01/13/23] PFSH Medical History?(Updated 01/13/23 @ 15:[address] Parker Lin MD) Abdominal pain Asthma Colitis Family History?(Updated 01/13/23 @ 14:17 by Radha Solis) Brother AsthmaFather Hypertension CAD (coronary artery disease) Kidney diseaseGrandfather Diabetes Heart disease CVA (cerebral vascular accident)Grandmother Cancer ?? ? skin Social History? Smoking Status:? Never smoker substance use type:? does not use HPI HPI HPI: 22-year-old gentleman.? He has been ill now for the past week.? He was seen in the [facility] emergency room twice.? Once on November 06, 2022 where his right flank pain and right mid abdominal pain was diagnosed as constipation and then again on January 08, 2023 because of persistent pain where he was diagnosed with colitis.? The patient states that for the past 2 years he has not felt well.? He claims that in the morning he will frequently awaken nauseated.? He does not typically eat breakfast.? He does eat lunch and dinner.? 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 He denies any illicit drug use.? No tobacco use.? Occasional alcohol use.? There was no binge drinking.? He denies bright red blood per rectum or melena.? He claims that occasionally he will not be able to move his bowels but he does not describe them as firm or hard.? Has not noticed any bright red blood per rectum or melena. On January 06 his white blood cell count was 12.1 with a hemoglobin 15.5 hematocrit 46.1 platelet count 225,000 with a normal differential.? BUN is 14 creatinine 1.1.? Liver function tests were not obtained.? Urinalysis slightly cloudy occult blood 25 normal urobilinogen 0-5 red cells 0 white cells 1+ urate CT scan was obtained noncontrasted.? Diagnosis was flank pain His pain was onset on the day that he presented to the emergency room he was not improved by the Toradol he was given the next day he continued to be miserable had vomiting and abdominal pain he was taking MiraLAX as he was told he was constipated mostly bedrest.? The following day is when he returned to the ER.? He had the Rouse contrasted IV and p.o. CT.? There is no personal or family history of ulcerative colitis or Crohn's.? He was placed on Bentyl and Augmentin.? Only starting yesterday was the pain somewhat improved.? He has not noticed really any fever throughout.? There is been no sweats.? His repeat white blood cell count was 11.6.? On his second visit the emergency room liver function tests were obtained which were normal except for total bilirubin of 1.6.? Urinalysis was repeated and was normal.? CT was interpreted as suggestive of colitis with some small free fluid in the posterior pelvis.? I have reviewed the CT images.? I am less impressed regarding the findings. It is of note that the patient as commented upon above is usually physically very active.? Over the past week with this illness he has been unable to work and there is been a significant amount of bedrest.? He was instructed to stay on clear liquids which she has done. ROS General General: No weight change, appetite, fatigue, colon cancer, breast cancer or weakness HEENT HEENT: No difficulty swallowing, eye injury, eye surgery, swollen glands or hoarseness Endo Endocrine: No thyroid disease, diabetes mellitus, thyroid cancer, Hair loss, heat intolerance or cold intolerance Skin Skin: No rash or changing moles Breast Breast: No left breast lump, right breast lump, nipple discharge, breast pain, abnormal mammogram, abnormal US or breast enlargement Musc Musculoskeletal: Yes back problems; No arthritis, rheumatoid arthritis, gout or joint pain Cardio Cardiovascular: No murmur, pacemaker, heart disease, atrial fibrillation, high blood pressure, heart attack, heart stent, palpitations, shortness of breat with exertion or chest pain Psych Psychiatric: No depression, anxiety or hearing voices Resp Respiratory: No shortness of breath, No sleep apnea, Yes cough, No COPD, Yes asthma, No emphysema and No wheezing Gastro Gastrointestinal: Yes abdominal pain, Yes nausea or vomiting, Yes diarrhea, Yes constipation, No blood in stool, No acid reflux, No hemorrhoids, No ulcers, No gallbladder problem and No black,tarry stools Isía[place] Hematologic: No blood thinners, No blood disorders, No bleeding, No anemia and No blood clots Neuro Neurologic: No system reviewed and no additional complaints, except as documented, No as per HPI, No abnormal gait, No abnormal hearing, No abnormal movements, No abnormal speech, No behavioral changes, No burning sensations, No confusion, No convulsions, No disequilibrium, No dizziness, No localized weakness, No frequent falls, No headache(s), No lack of coordination, No loss of vision, No memory loss, No numbness, No other visual disturbances, No radicular pain, No restless legs, No sensory deficit, No syncope, No tingling, No tremor(s), No weakness and No other Exam Const General: cooperative, healthy appearing, comfortable and no acute distress Nutritional Appearance: average body habitus Orientation: alert, awake and oriented x3 HENMT Head: normal to inspection Eyes General: appearance normal, both eyes and all related structures Neck Neck: normal visual inspection Chest Chest palpation & inspection: normal inspection of the chest Resp Effort & Inspection: normal respiratory effort Auscultation: clear to auscultation bilaterally Other: Patient is tender to percussion bilateral mid back and lower back Cardio Rate: regular rate Rhythm: regular rhythm Heart Sounds: no murmurs GI Inspection: normal to inspection Palpation: soft Other: Hypoactive bowel sounds.? Minimal tenderness to palpation right lower quadrant.? No rebound or guarding. Musc Cervical Spine: normal cervical lordosis Skin General: no rashes or lesions noted Neuro General: patient alert, patient awake and patient oriented x3 Extrem General: normal to inspection and no calf tenderness Psych Appearance: grossly normal Assessment and Plan Assessment and Plan (1) Colitis: ?Status:?Acute (2) Abdominal pain: ?Status:?Acute (3) Nausea: ?Status:?Acute ?Plan: 22-year-old gentleman with a complicated presentation.? He has been not feeling well for at least 1 to 2 years.? He has nausea typically in the mornings and does not eat breakfast.? He has not had any significant weight loss.? 1 week ago though he had a sudden onset of waking with right flank pain which then tended to move and evolved more into right mid abdominal pain.? He was seen in the emergency room twice.? Thought was that he possibly had a right kidney stone but that did not seemingly appear.? He returned to the emergency room and imaging on CT with contrast suggested possible colitis.? He has been on Augmentin and suspected constipation has been treated with MiraLAX. Liver function tests were normal.? On my clinical exam he was not in acute distress.? It is interesting that he had percussion tenderness to his back both the left and the right.? His abdominal exam was less remarkable with quiet bowel sounds and some minimal tenderness in the right lower quadrant. Etiology to his presentation is very much unclear.? I have proposed for him a esophagogastroduodenoscopy with possible biopsy to try to help define the nausea episodes with the more recent episode of vomiting.? Also proposed for him a colonoscopy with possible biopsy or polypectomy as indicated.? I will make every attempt to try to intubate the terminal ileum for sampling as well. The patient is aware if I cannot find the etiology to his flank and abdominal pain with that type of investigation then I would recommend a gallbladder ultrasound and if again not remarkable then a hepatobiliary scan. The patient and his mother who is employed at the [facility] did try to get into gastroenterology but the timeline was out nearly 2 months and the patient appeared to be in more acute need of attention and so they contacted my office. He has had an opportunity to ask and have questions answered.? I have encouraged that he start utilizing nutritional supplements.? We will try to expedite his endoscopy and currently we have him scheduled for January 16, 2023.? I appreciate the opportunity of assisting with the surgical care. Copy: Dr. Sonia Lin M.D., F.A.C.S I have examined the patient and the H&P has been reviewed. There are no clinical changes since date of exam. Parker Lin M.D., F.A.C.S.
--- NOTE | 2023-01-16 10:15 | IMM_PTH ---
PATIENT: FARHAN ISABEL LOC: [facility] [place] U#:[id number] AGE/SX: 22/M ROOM: RE01/16/[address]: Dr. Parker Lin MD : 2000 BED: DIS: 01/16/2023 SPEC #: [id number] RECD: 01/16/23 13:43 STATUS: JOSE FRANCISCO REQ #: [id number] RADHA: 01/16/23 10:[address]: Parker Lin DEPT: IMMUNOHISTOCHEMISTRY RECD BY: Carolina Meraz ENTERED: 01/16/23 13:44 SP TYPE: IMMUNO OTHR DR: Dr. Sonia Cyr MD Tissues: C - Stomach, NOS Procedures: H Pylori (initial) PHYSICIAN & INSTITUTION [place] [id number] SPECIMEN INFORMATION: Tissue Source: C - Antrum Clinical Info: Colitis, abdominal pain, nausea Specimen Number: [id number] CPT code: 75167 METHODOLOGY: Deparaffinized sections of prefer/formalin-fixed tissue or PAP/DQ stained slides are incubated with monoclonal/polyclonal antibodies/oligonucleotide probes. Localization is made via biotin free immunoperoxidase method. Appropriate controls are performed and reacted as expected. Results on target cell population are indicated in the following table: RESULTS: ANTIBODY / CLONE RESULT Block C H Pylori (polyclonal) negative These tests were developed and their performance characteristics determined by [facility]. They may not have been cleared or approved by the U.S. Food and Drug Administration. The FDA has determined that such clearance or approval is not necessary. The above immunohistochemical/dualISH markers are ordered and reviewed by the Pathologist. INTERPRETATION: C. Antrum, biopsy: Negative for Helicobacter pylori organisms. SJ:wendie 01/19/2023
--- NOTE | 2023-01-16 11:35 | OP.EGD_ITS ---
Patient Name: Gagan Jenkins Procedure Date: 01/16/2023 10:35 AM Date of : 2000 Age: 22 Procedure: Upper GI endoscopy Indications: Abdominal pain in the right lower quadrant Providers: Parker Lin MD Referring MD: Sonia Cyr Medicines: See the Anesthesia note for documentation of the administered medications Complications: No immediate complications. Procedure: Pre-Anesthesia Assessment: - Prior to the procedure, a History and Physical was performed, and patient medications and allergies were reviewed. The patient's tolerance of previous anesthesia was also reviewed. The risks and benefits of the procedure and the sedation options and risks were discussed with the patient. All questions were answered, and informed consent was obtained. Prior Anticoagulants: The patient has taken no previous anticoagulant or antiplatelet agents. ASA Grade Assessment: II - A patient with mild systemic disease. After reviewing the risks and benefits, the patient was deemed in satisfactory condition to undergo the procedure. After obtaining informed consent, the endoscope was passed under direct vision. Throughout the procedure, the patient's blood pressure, pulse, and oxygen saturations were monitored continuously. The gastroscope was introduced through the mouth, and advanced to the second part of duodenum. The upper GI endoscopy was accomplished without difficulty. The patient tolerated the procedure well. Scope In: 10:51:17 AM Scope Out: 10:59:54 AM Total Procedure Duration Time 0 hours 8 minutes 37 seconds Findings: Esophagitis with no bleeding was found 43 cm from the incisors. Biopsies were taken with a cold forceps for histology. The middle third of the esophagus was normal. Biopsies were taken with a cold forceps for histology. A small hiatal hernia was present. Diffuse mildly erythematous mucosa without bleeding was found in the gastric fundus. Biopsies were taken with a cold forceps for histology. The gastric antrum was normal. Biopsies were taken with a cold forceps for histology. The examined duodenum was normal. Biopsies were taken with a cold forceps for histology. Impression: - Reflux esophagitis. Biopsied. - Normal middle third of esophagus. Biopsied. - Small hiatal hernia. - Erythematous mucosa in the gastric fundus. Biopsied. - Normal antrum. Biopsied. - Normal examined duodenum. Biopsied. Recommendation: - Discharge patient to home. - Resume previous diet. - Continue present medications. - Use Prilosec (omeprazole) 40 mg PO daily. I will plan outpatient gallbladder ultrasound and if unremarkable then a hepatobiliary scan. Procedure Code(s): --- Professional --- 69599, Esophagogastroduodenoscopy, flexible, transoral; with biopsy, single or multiple Diagnosis Code(s): --- Professional --- K21.0, Gastro-esophageal reflux disease with esophagitis K44.9, Diaphragmatic hernia without obstruction or gangrene K31.89, Other diseases of stomach and duodenum R10.31, Right lower quadrant pain CPT copyright 2017 [employer]. All rights reserved. The codes documented in this report are preliminary and upon remote coders review may be revised to meet current compliance requirements. Parker Lin MD 01/16/2023 11:35:12 AM This report has been signed electronically. Number of Addenda: 0 Note Initiated On: 01/16/2023 10:35 AM
--- NOTE | 2023-01-16 11:36 | OP.CCLET_ITS ---
01/16/2023 Sonia Cyr [facility] [id number] [address] Re : Upper GI endoscopy procedure for Gagan Jenkins Dear Dr. Cyr This procedure was performed on Monday, January 16, 2023. My impressions and recommendations are as follows: Impressions : - Reflux esophagitis. Biopsied. - Normal middle third of esophagus. Biopsied. - Small hiatal hernia. - Erythematous mucosa in the gastric fundus. Biopsied. - Normal antrum. Biopsied. - Normal examined duodenum. Biopsied. Recommendations : - Discharge patient to home. - Resume previous diet. - Continue present medications. - Use Prilosec (omeprazole) 40 mg PO daily. I will plan outpatient gallbladder ultrasound and if unremarkable then a hepatobiliary scan. My findings are described in the full procedure note, which is enclosed. If I can be of further assistance, please feel free to contact me at Doctor phone number(s): Work: . Sincerely, Parker Lin MD 01/16/2023 11:35:12 AM This report has been signed electronically.
--- NOTE | 2023-01-16 11:42 | OP.COLON_ITS ---
Patient Name: Gagan Jenkins Procedure Date: 01/16/2023 11:00 AM Date of : 2000 Age: 22 Procedure: Colonoscopy Indications: Abdominal pain in the right lower quadrant Providers: Parker Lin MD Referring MD: Sonia Cyr Medicines: See the Anesthesia note for documentation of the administered medications Patient Profile: Last Colonoscopy: none. The patient's first colonoscopy is today. Complications: No immediate complications. Procedure: Pre-Anesthesia Assessment: - Prior to the procedure, a History and Physical was performed, and patient medications and allergies were reviewed. The patient's tolerance of previous anesthesia was also reviewed. The risks and benefits of the procedure and the sedation options and risks were discussed with the patient. All questions were answered, and informed consent was obtained. Prior Anticoagulants: The patient has taken no previous anticoagulant or antiplatelet agents. ASA Grade Assessment: II - A patient with mild systemic disease. After reviewing the risks and benefits, the patient was deemed in satisfactory condition to undergo the procedure. After I obtained informed consent, the scope was passed under direct vision. Throughout the procedure, the patient's blood pressure, pulse, and oxygen saturations were monitored continuously. The colonoscope was introduced through the anus and advanced to the cecum, identified by appendiceal orifice and ileocecal valve. The colonoscopy was performed without difficulty. The patient tolerated the procedure well. The quality of the bowel preparation was good. The ileocecal valve and the appendiceal orifice were photographed. Scope In: 11:02:06 AM Scope Withdrawal Time 0 hours 14 minutes 6 seconds Scope Out: 11:23:28 AM Total Procedure Duration Time 0 hours 21 minutes 22 seconds Findings: The perianal and digital rectal examinations were normal. The colon (entire examined portion) appeared normal. Biopsies were taken with a cold forceps for histology. Impression: - The entire examined colon is normal. Biopsied the right, and proximal transverse and mid transverse and sigmoid colon. Recommendation: - Discharge patient to home. - Resume previous diet. - Continue present medications. - Repeat colonoscopy at age 45. - Telephone my office for pathology results in 1 week. Procedure Code(s): --- Professional --- 73757, Colonoscopy, flexible; with biopsy, single or multiple Diagnosis Code(s): --- Professional --- R10.31, Right lower quadrant pain CPT copyright 2017 [employer]. All rights reserved. The codes documented in this report are preliminary and upon actuarial internship review may be revised to meet current compliance requirements. Parker Lin MD 01/16/2023 11:41:28 AM This report has been signed electronically. Number of Addenda: 0 Note Initiated On: 01/16/2023 11:00 AM
--- NOTE | 2023-01-16 11:42 | OP.CCLET_ITS ---
01/16/2023 Sonia Cyr [facility] [address] [address] Re : Colonoscopy procedure for Gagan Jenkins Dear Dr. Cyr This procedure was performed on Monday, January 16, 2023. My impressions and recommendations are as follows: Impressions : - The entire examined colon is normal. Biopsied the right, and proximal transverse and mid transverse and sigmoid colon. Recommendations : - Discharge patient to home. - Resume previous diet. - Continue present medications. - Repeat colonoscopy at age 45. - Telephone my office for pathology results in 1 week. My findings are described in the full procedure note, which is enclosed. If I can be of further assistance, please feel free to contact me at Doctor phone number(s): Work: . Sincerely, Parker Lin MD 01/16/2023 11:41:28 AM This report has been signed electronically.
== END 2023-01-16 12:32 | disposition home or self-care (01) ==
LOC: SDC 09:14 → AC 09:15
PROVIDERS: PCP Family Medicine; Referring Provider Family Medicine; Visit Provider Surgery
PROC: 0DJD8ZZ Inspection of Lower Intestinal Tract, Via Natural or Artificial Opening Endoscopic (ICD-10-PCS; CPT 45378; principal; 2023-01-16 10:10)
DX: K29.70 Gastritis, unspecified, without bleeding (principal); K52.9 Noninfective gastroenteritis and colitis, unspecified; K21.00 Gastro-esophageal reflux disease with esophagitis, without bleeding; K44.9 Diaphragmatic hernia without obstruction or gangrene
CPT/HCPCS: 45380; 43239; 88305; 88313; 88342; J7120; J2405

== ENCOUNTER → 2023-01-19 | Outpatient (CLI) | payer OTHER, SELFPAY ==
--- NOTE | 2023-01-19 09:21 | US_ITS ---
STUDY: ABDOMINAL ULTRASOUND - RIGHT UPPER QUADRANT REASON FOR VISIT: Male, 22 years old abdominal pain and nausea. TECHNIQUE: Ultrasound evaluation of the right upper quadrant was performed with real-time and static raya-scale imaging. TECHNICAL QUALITY: Adequate. COMPARISON: None. FINDINGS: Liver: The liver measures 18.4 cm. There is normal echogenicity of the liver. The bile ducts are within normal limits. There is hepatic color flow. The direction of portal flow is hepatopetal. There is no demonstrated mass lesion. Gallbladder: Normal distended gallbladder. The gallbladder wall measures 1.0 mm. There is a negative sonographic Soto''s sign. There is no pericholecystic fluid. There are no gallstones. Common Bile Duct (C.B.D.): The common bile duct measures 2.0 mm. Pancreas: Normal size of the head, body and tail of the pancreas. There is normal echogenicity of the pancreas. There is no demonstrated pancreatic mass or cyst. Right Kidney: Normal size of the right kidney. The right kidney measures 11.5 cm x 5.6 cm x 6 cm. Normal renal cortex. The right cortex measures 2.2 cm. There is no demonstrated renal mass or cyst. There is no right hydronephrosis. US/Gallbladder IMPRESSION: Borderline hepatomegaly. Electronically Signed: Aaron Senior MD at 9:59 EDT ,
== END | disposition home or self-care (01) ==
LOC: US 09:19
PROVIDERS: PCP Family Medicine; Referring Provider Surgery; Visit Provider Surgery
DX: R10.9 Unspecified abdominal pain (principal); R11.0 Nausea
CPT/HCPCS: 76705

== ENCOUNTER → 2023-02-11 | Outpatient (CLI) | payer OTHER, SELFPAY ==
--- NOTE | 2023-02-11 09:50 | NM_ITS ---
CLINICAL: 22-year-old male with history of abdominal pain. RADIONUCLIDE HEPATOBILIARY SCINTIGRAPHY COMPARISON: Abdominal ultrasound report 01/19/2023 FINDINGS: Following the intravenous administration of 5.7 mCi of 99m Tc Mebrofenin, hepatobiliary images reveal: 1. Relatively prompt and homogeneous radiopharmaceutical concentration is noted by the hepatic parenchyma. No parenchymal defects are identified. 2. Gallbladder activity is identified at 10 minutes post radiopharmaceutical administration. 3. Small intestinal tract is observed at 15-30 minutes following tracer injection. 4. Washout of the radiopharmaceutical by the hepatic parenchyma appears qualitatively normal. Cholecystokinin (0.02 ug/kg) was administered intravenously over a 30-minute period. The post CCK gallbladder ejection fraction calculated at 29 minutes following Cholecystokinin administration was noted to be 38.0 % (normal greater than 35%). During 30 minutes of post CCK imaging, there is no scintigraphic evidence of reflux of the radiotracer into the common hepatic duct or refilling of the gallbladder. Post cholecystokinin duodenal-gastric reflux is defined. NM/Hepatobilliary Img w/Pharm Int IMPRESSION: 1. A gallbladder ejection fraction calculated to be greater than 35% following the administration of Cholecystokinin makes the probability of functional hepatobiliary disease (gallbladder and/or sphincter of Oddi dyskinesia) and/or organic hepatobiliary disease (chronic acalculous cholecystitis and/or cystic duct syndrome) to be low. (Niki Springer et al, Journal of Nuclear Medicine 32:1695, 1991). 2. Duodenal-gastric reflux is demonstrated following cholecystokinin administration. Electronically Signed: Kamar Birch, at 9:45 EDT ,
== END | disposition home or self-care (01) ==
LOC: NM 09:49
PROVIDERS: PCP Family Medicine; Referring Provider Surgery; Visit Provider Surgery
DX: R10.9 Unspecified abdominal pain (principal)
CPT/HCPCS: 78227; A9537; J2805

== ENCOUNTER 2023-02-20 05:59 | Day surgery (SDC) | payer OTHER, SELFPAY ==
[2023-02-20] VITALS (9 sets, daily range): BP systolic 106–118; BP diastolic 55–104; PULSE 45–68; RESP 16–18; TEMP 36.2–36.7; O2SAT 97–100; BMI 20.9
--- NOTE | 2023-02-20 06:10 | EKG12_ITS ---
Test Reason : PRE OP Blood Pressure : / mmHG Vent. Rate : 062 BPM Atrial Rate : 062 BPM P-R Int : 144 ms QRS Dur : 092 ms QT Int : 362 ms P-R-T Axes : 056 066 051 degrees QTc Int : 367 ms Normal sinus rhythm Normal ECG When compared with ECG of 02-APR-2014 14:48, PREVIOUS ECG IS PRESENT Confirmed by LUISA CROFT, SILVIA ([id number]), purchase request editor JASPREET HERRERA ([id number]) on 03/03/2023 7:35:12 AM Referred By: Parker Lin Confirmed By:SILVIA MORAN MD
[2023-02-20] MEDS: Lactated Ringers 1,000 ML 15 ML IV ×2 (06:28→08:25)
--- NOTE | 2023-02-20 06:41 | HP.PCM_ITS ---
History and Physical Date of Admission: 02/20/23 Chief Complaint: abd pain/colitis/discuss hida results Is patient in pain?: Yes Allergies No Known Allergies Allergy (Verified 02/17/23 12:47) Medications albuterol sulfate 90 mcg/actuation aerosol inhaler 1 gm inhalation DAILY 01/13/23 [History Confirmed 01/16/23] fluticasone propionate 110 mcg/actuation HFA aerosol inhaler (Flovent HFA) 1 gm inhalation DAILY 01/13/23 [History Confirmed 01/16/23] omeprazole 40 mg capsule,delayed release 40 mg PO DAILY #30 caps 01/16/23 [Rx] PFSH Medical History Abdominal pain Asthma Colitis Migraine headache Non-smoker Surgical History (Updated 01/14/23 @ 13:20 by Aislinn Dickerson) History of wisdom tooth extraction Family History (Updated 01/13/23 @ 14:17 by Radha Solis) Brother AsthmaFather Hypertension CAD (coronary artery disease) Kidney diseaseGrandfather Diabetes Heart disease CVA (cerebral vascular accident)Grandmother Cancer skin Social History Smoking Status: Never smoker substance use type: does not use HPI HPI HPI: 22-year-old gentleman returns to discuss results of an upper and lower endoscopy as well as a hepatobiliary scan. I performed the endoscopy for him on January 16, 2023 Patient ate at a restaurant and subsequent to that has had nausea and upper abdominal pain. He feels just generally unwell. It is of note that he has not really felt great ever since his hepatobiliary scan and that he experienced epigastric right upper quadrant pain after the CCK injection. He presents with his mother today. Mild gastritis. H. pylori negative. Reflux esophagitis chronic. Colonic biopsies mostly unremarkable with normal pathology other than some hemorrhagic change of the sigmoid likely very nonspecific and possibly related to the endoscopy itself. Other than the very mild gastritis and reflux esophagitis this would not seemingly correlate with the patient's degree of back flank and abdominal pain. As noted gallbladder ultrasound was normal. The hepatobiliary scan of February demonstrated gallbladder activity at 10 minutes and small bowel activity at 15 to 30 minutes. The ejection fraction was borderline at 38%. It is of note that duodenal gastric reflux was demonstrated during the cholecystokinin administration. My previous notes reflect the following Chief Complaint: abd pain/colitis Group Exercise Class Instructor Required: No Is patient in pain?: No Allergies No Known Allergies Allergy (Verified 01/13/23 14:12) Medications polyethylene glycol 3350 17 gram oral powder packet (Miralax) 17 g PO DAILY PRN constipation #14 ea 01/06/23 [Rx Confirmed 01/13/23] amoxicillin 875 mg-potassium clavulanate 125 mg tablet 875 mg PO Q12H #20 TABLETS 01/08/23 [Rx Confirmed 01/13/23] dicyclomine 10 mg capsule 20 mg PO TIDAC #20 CAPSULES 01/08/23 [Rx Confirmed 01/13/23] ondansetron 4 mg disintegrating tablet 4 mg PO Q8H PRN PRN Nausea #10 tabs 01/08/23 [Rx Confirmed 01/13/23] albuterol sulfate 90 mcg/actuation aerosol inhaler gm inhalation 01/13/23 [History Confirmed 01/13/23] fluticasone propionate 110 mcg/actuation HFA aerosol inhaler (Flovent HFA) gm inhalation 01/13/23 [History Confirmed 01/13/23] PFSH Medical History?(Updated 01/13/23 @ 15:[address] Parker Lin MD) Abdominal pain Asthma Colitis Family History?(Updated 01/13/23 @ 14:17 by Radha Solis) Brother AsthmaFather Hypertension CAD (coronary artery disease) Kidney diseaseGrandfather Diabetes Heart disease CVA (cerebral vascular accident)Grandmother Cancer ?? ? skin Social History? Smoking Status:? Never smoker substance use type:? does not use HPI HPI HPI: 22-year-old gentleman.? He has been ill now for the past week.? He was seen in the [facility] [place] emergency room twice.? Once on November 06, 2022 where his right flank pain and right mid abdominal pain was diagnosed as constipation and then again on January 08, 2023 because of persistent pain where he was diagnosed with colitis.? The patient states that for the past 2 years he has not felt well.? He claims that in the morning he will frequently awaken nauseated.? He does not typically eat breakfast.? He does eat lunch and dinner.? 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 He denies any illicit drug use.? No tobacco use.? Occasional alcohol use.? There was no binge drinking.? He denies bright red blood per rectum or melena.? He claims that occasionally he will not be able to move his bowels but he does not describe them as firm or hard.? Has not noticed any bright red blood per rectum or melena. On January 06 his white blood cell count was 12.1 with a hemoglobin 15.5 hematocrit 46.1 platelet count 225,000 with a normal differential.? BUN is 14 creatinine 1.1.? Liver function tests were not obtained.? Urinalysis slightly cloudy occult blood 25 normal urobilinogen 0-5 red cells 0 white cells 1+ urate CT scan was obtained noncontrasted.? Diagnosis was flank pain His pain was onset on the day that he presented to the emergency room he was not improved by the Toradol he was given the next day he continued to be miserable had vomiting and abdominal pain he was taking MiraLAX as he was told he was constipated mostly bedrest.? The following day is when he returned to the ER.? He had the [place] contrasted IV and p.o. CT.? There is no personal or family history of ulcerative colitis or Crohn's.? He was placed on Bentyl and Augmentin.? Only starting yesterday was the pain somewhat improved.? He has not noticed really any fever throughout.? There is been no sweats.? His repeat white blood cell count was 11.6.? On his second visit the emergency room liver function tests were obtained which were normal except for total bilirubin of 1.6.? Urinalysis was repeated and was normal.? CT was interpreted as suggestive of colitis with some small free fluid in the posterior pelvis.? I have reviewed the CT images.? I am less impressed regarding the findings. It is of note that the patient as commented upon above is usually physically very active.? Over the past week with this illness he has been unable to work and there is been a significant amount of bedrest.? He was instructed to stay on clear liquids which she has done. ROS General General: No weight change, appetite, fatigue, colon cancer, breast cancer or weakness HEENT HEENT: No difficulty swallowing, eye injury, eye surgery, swollen glands or hoarseness Endo Endocrine: No thyroid disease, diabetes mellitus, thyroid cancer, Hair loss, heat intolerance or cold intolerance Skin Skin: No rash or changing moles Breast Breast: No left breast lump, right breast lump, nipple discharge, breast pain, abnormal mammogram, abnormal US or breast enlargement Musc Musculoskeletal: Yes back problems; No arthritis, rheumatoid arthritis, gout or joint pain Cardio Cardiovascular: No murmur, pacemaker, heart disease, atrial fibrillation, high blood pressure, heart attack, heart stent, palpitations, shortness of breat with exertion or chest pain Psych Psychiatric: No depression, anxiety or hearing voices Resp Respiratory: No shortness of breath, No sleep apnea, Yes cough, No COPD, Yes asthma, No emphysema and No wheezing Gastro Gastrointestinal: Yes abdominal pain, Yes nausea or vomiting, Yes diarrhea, Yes constipation, No blood in stool, No acid reflux, No hemorrhoids, No ulcers, No gallbladder problem and No black,tarry stools Isaías Hematologic: No blood thinners, No blood disorders, No bleeding, No anemia and No blood clots Neuro Neurologic: No system reviewed and no additional complaints, except as doc umented, No as per HPI, No abnormal gait, No abnormal hearing, No abnormal movements, No abnormal speech, No behavioral changes, No burning sensations, No confusion, No convulsions, No disequilibrium, No dizziness, No localized weakness, No frequent falls, No headache(s), No lack of coordination, No loss of vision, No memory loss, No numbness, No other visual disturbances, No radicular pain, No restless legs, No sensory deficit, No syncope, No tingling, No tremor(s), No weakness and No other Exam Const General: cooperative, healthy appearing, comfortable and no acute distress Nutritional Appearance: average body habitus Orientation: alert, awake and oriented x3 HENMT Head: normal to inspection Eyes General: appearance normal, both eyes and all related structures Neck Neck: normal visual inspection Chest Chest palpation & inspection: normal inspection of the chest Resp Effort & Inspection: normal respiratory effort Auscultation: clear to auscultation bilaterally Other: Patient is tender to percussion bilateral mid back and lower back Cardio Rate: regular rate Rhythm: regular rhythm Heart Sounds: no murmurs GI Inspection: normal to inspection Palpation: soft Other: Hypoactive bowel sounds.? Minimal tenderness to palpation right lower quadrant.? No rebound or guarding. Musc Cervical Spine: normal cervical lordosis Skin General: no rashes or lesions noted Neuro General: patient alert, patient awake and patient oriented x3 Extrem General: normal to inspection and no calf tenderness Psych Appearance: grossly normal Assessment and Plan Assessment and Plan (1) Colitis: ?Status:?Acute (2) Abdominal pain: ?Status:?Acute (3) Nausea: ?Status:?Acute ?Plan: 22-year-old gentleman with a complicated presentation.? He has been not feeling well for at least 1 to 2 years.? He has nausea typically in the mornings and does not eat breakfast.? He has not had any significant weight loss.? 1 week ago though he had a sudden onset of waking with right flank pain which then tended to move and evolved more into right mid abdominal pain.? He was seen in the emergency room twice.? Thought was that he possibly had a right kidney stone but that did not seemingly appear.? He returned to the emergency room and imaging on CT with contrast suggested possible colitis.? He has been on Augmentin and susp ected constipation has been treated with MiraLAX. Liver function tests were normal.? On my clinical exam he was not in acute distress.? It is interesting that he had percussion tenderness to his back both the left and the right.? His abdominal exam was less remarkable with quiet bowel sounds and some minimal tenderness in the right lower quadrant. Etiology to his presentation is very much unclear.? I have proposed for him a esophagogastroduodenoscopy with possible biopsy to try to help define the nausea episodes with the more recent episode of vomiting.? Also proposed for him a colonoscopy with possible biopsy or polypectomy as indicated.? I will make every attempt to try to intubate the terminal ileum for sampling as well. The patient is aware if I cannot find the etiology to his flank and abdominal pain with that type of investigation then I would recommend a gallbladder ultrasound and if again not remarkable then a hepatobiliary scan. The patient and his mother who is employed at the [facility] [place] did try to get into gastroenterology but the timeline was out nearly 2 months and the patient appeared to be in more acute need of attention and so they contacted my office. He has had an opportunity to ask and have questions answered.? I have encouraged that he start utilizing nutritional supplements.? We will try to expedite his endoscopy and currently we have him scheduled for January 16, 2023.? I appreciate the opportunity of assisting with the surgical care. Copy: Dr. Sonia Lin M.D., F.A.C.S ROS General General: No weight change, appetite, fatigue, colon cancer, breast cancer or weakness HEENT HEENT: No difficulty swallowing, eye injury, eye surgery, swollen glands or h oarseness Endo Endocrine: No thyroid disease, diabetes mellitus, thyroid cancer, Hair loss, heat intolerance or cold intolerance Skin Skin: No rash or changing moles Musc Musculoskeletal: Yes back problems; No arthritis, rheumatoid arthritis, gout or joint pain Cardio Cardiovascular: No murmur, pacemaker, heart disease, atrial fibrillation, high blood pressure, heart attack, heart stent, palpitations, shortness of breat with exertion or chest pain Psych Psychiatric: No depression, anxiety or hearing voices Resp Respiratory: No shortness of breath, No sleep apnea, Yes cough, No COPD, Yes asthma, No emphysema and No wheezing Gastro Gastrointestinal: Yes abdominal pain, Yes nausea or vomiting, Yes diarrhea, Yes constipation, No blood in stool, No acid reflux, No hemorrhoids, No ulcers, No gallbladder problem and No black,tarry stools Isaías Hematologic: No blood thinners, No blood disorders, No bleeding, No anemia and No blood clots Neuro Neurologic: No system reviewed and no additional complaints, except as documented, No as per HPI, No abnormal gait, No abnormal hearing, No abnormal movements, No abnormal speech, No behavioral changes, No burning sensations, No confusion, No convulsions, No disequilibrium, No dizziness, No localized weakness, No frequent falls, No headache(s), No lack of coordination, No loss of vision, No memory loss, No numbness, No other visual disturbances, No radicular pain, No restless legs, No sensory deficit, No syncope, No tingling, No tremor(s), No weakness and No other Assessment and Plan Assessment and Plan (1) Biliary dyskinesia: Status: Acute Plan: To the best my ability I suspect that this patient has biliary dyskinesia causing his nausea and abdominal pain. I propose for him a laparoscopic cholecystectomy with selective cholangiography and have discussed technique, benefit, risk, alternatives. Absolutely no guarantees of success have been offered. I do not believe that the mild findings of mild gastritis H. pylori negative and minimal reflux changes correlate with the severity of the patient's presentation. I did make comment to him however that it certainly possible that he has irritable bowel syndrome. He has had an opportunity to ask and have questions answered. At this point I believe it is reasonable to proceed with a laparoscopic cholecystectomy with selective cholangiography. We will try to schedule and expedite his care. If this does not solve his issue then we may need to get gastroenterology assistance. I appreciate the ongoing opportunity of assisting with the surgical care Copy: Dr. Sonia Lin M.D., F.A.C.S I have examined the patient and the H&P has been reviewed. There are no clinical changes since date of exam. Parker Lin M.D., F.A.C.S.
--- NOTE | 2023-02-20 06:42 | DCINST_ITS ---
Discharge Instructions Procedure General Surgery Diet Discharge Diet: Light diet - advance as tolerated (if you have questions about your diet instructions, please talk to you doctor.) Activity Discharge Activity: May Not Drive (for 3-5 days or while taking narcotic pain medicine.) May shower in (days): 1 Lifting Restrictions: 10 pounds Dressing / Incision Call your doctor if your incision/area has: Continuous Slow Oozing, Sudden Increased Bleeding, Increased Pain/ Swelling, Increased Redness and Foul Smelling Discharge Call your doctor if you observe: Fever of 101 or Higher Suture Line Care: Avoid Pulling/Pushing and Avoid Pinching/Bending Additional Dressing/Incision Instructions:: Change or remove dressing in 4 days. Leave steri-strips in place for 1 week. Follow Up Care Please Follow Up With: Parker Lin MD When: Call [phone] to make an appointment to be seen in about 10 days. Test Results: Test results from this visit will be discussed in further detail at your follow- up appointment, if applicable. Discharge Plan Admission Attending Provider: Parker Lin Primary Care Provider: Sonia Cyr Discharge Orders/Prescriptions Prescriptions: No Action fluticasone propionate [Flovent HFA] 110 mcg/actuation HFA aerosol inhaler 1 gm inhalation DAILY albuterol sulfate 90 mcg/actuation HFA aerosol inhaler 1 gm inhalation DAILY omeprazole 40 mg capsule,delayed release(DR/EC) 40 mg PO DAILY Qty: 30 1RF Referrals / Follow Up: Sonia Cyr MD [Primary Care Provider] - Disposition Disposition (needs filled in before D/C Order can be placed): Home, Self Care
[2023-02-20] MEDS: Cefazolin 2 GM in 0.9% Normal Saline 100 ML IV (07:25)
--- NOTE | 2023-02-20 07:30 | GALL_PTH ---
PATIENT: FARHAN ISABEL LOC: [facility] – [place], [place] U#:[id number] AGE/SX: 22/M ROOM: RE02/20/[address]: Dr. Parker Lin MD : 2000 BED: DIS: 02/20/2023 SPEC #: [id number] RECD: 02/20/23 10:17 STATUS: JOSE FRANCISCO FANTA #: [id number] RADHA: 02/20/23 07:[address]: Parker Lin DEPT: SURGICAL PATHOLOGY RECD BY: Judit Love ENTERED: 02/20/23 10:50 SP TYPE: DEVAUGHN NOLASCO DR: Dr. Sonia Cyr MD Tissues: Gallbladder, NOS Procedures: Surgery Specimen Level III HEADER OPERATION: Laparoscopic, cholecystectomy with IOC PRE-OP DIAGNOSIS: Biliary dyskinesia TISSUE SUBMITTED: Gallbladder MICROSCOPIC DIAGNOSIS Gallbladder, cholecystectomy: Chronic cholecystitis. See comment. JEANNIE:wendie 02/23/2023 COMMENT No stones are identified in the container or in the gallbladder. MICROSCOPIC DESCRIPTION Slides are reviewed. GROSS DESCRIPTION Received is one container labeled with the patient's name and designated gallbladder. The specimen consists of a gallbladder measuring 8.0 cm in length and up to 3.0 cm in diameter. The external surface is pink-landis, smooth and glistening for the most part. Focally it is granular, hemorrhagic and contains cautery artifact. The gallbladder contains bile and no stones. The mucosa is bile-stained and without any mass lesions. The gallbladder wall measures up to 0.2 cm in thickness. 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 / AM 02/20/2023 TC:3 CPT: 98452
[2023-02-20] MEDS: Bupivacaine 0.5% PF 10 ML VIAL (07:42)
--- NOTE | 2023-02-20 07:50 | RAD_ITS ---
STUDY: INTRAOPERATIVE CHOLANGIOGRAM. REASON FOR EXAM: Male, 22 years old. LAP AGUSTIN WITH IOC FLUOROSCOPY TIME (if supplied): ( 12.5 seconds ) minutes/seconds. 7.15 mGy TECHNIQUE: An intraoperative Cholangiogram was performed by the surgeon. Imaging was submitted. COMPARISON: None. FINDINGS: The intra and extrahepatic biliary ducts are unremarkable. No intraluminal filling defect is seen. There is free flow of contrast into the duodenum. RAD/Cholangiogram/ O R,Initial IMPRESSION: Unremarkable intraoperative cholangiogram. Electronically Signed: Aaron Senior MD at 8:37 EDT ,
--- NOTE | 2023-02-20 08:25 | OP.PCM_ITS ---
Report of Operation Date of Procedure: 02/20/23 Pre-Operative Diagnosis: Biliary dyskinesia Post-Operative Diagnosis: Same Surgery/Procedure Performed:: Laparoscopic cholecystectomy with cholangiograms Description of Surgical Findings:: Timeout informed consent was obtained. 22-year-old male was taken to the operating placed on the table underwent general endotracheal intubation esthesia. Ancef 2 g given intravenously. The abdomen sterilely prepped and draped. 0.5% Marcaine was used as a local anesthetic. Skin sites were preanesthetized. A total of 30 cc was used. A vertical infraumbilical incision was created holding sutures of 0 Vicryl placed varies needle inserted saline drop test performed the abdomen was insufflated with CO2 to a pressure of 10 mm per mercury pressure. 10 mm trocar inserted. 10 mm laparoscope inserted. No evidence of any trocar injuries under direct visualization 5 mm ports were placed in the epigastric mid subcostal space and lateral subcostal space on the right. There were adhesions of omentum to the gallbladder these were bluntly dissected free and hemostasis was obtained and Hem-o-charisse clip. The infundibular area the gallbladder was dissected free until clearly the cystic duct and cystic artery were identified. The cystic artery was clipped proximally and distally with Hem-o-charisse clips prior to transecting it. Hem-o-charisse clip was placed on the cystic duct stump and incision made in the cystic duct and through a 14-gauge Angiocath cholangiogram catheter was inserted. Fluoroscopically controlled cholangiograms were obtained demonstrating normal ductal anatomy and free flow into the small bowel. The cholangiogram catheter was removed 2 additional Hem-o-charisse clips were placed on the cystic duct stump prior to transecting it. The gallbladder was dissected free from the liver bed using electrocautery. Very minimal amount of bile spillage occurred during that no stone spillage to the the hole in the gallbladder rapidly controlled in the gallbladder then released from the liver bed and placed in a retrieval bag. The right upper quadrant irrigated and aspirated free of fluid. Gallbladder bed was noted to be hemostatic. Clips all in good position. The gallbladder was removed at the umbilicus as the abdomen was allowed to deflate of the CO2. The abdomen was allowed to deflate through an antiviral valve. The fascia at the umbilicus approximated up to 0 Vicryl figure 8 suture. Skin edges approximated opted for Monocryl subdermal stitches. Steri-Strips Telfa OpSite dressings applied. Sponge and instrument and needle counts were reported to the surgeon to be cor rect. Specimen gallbladder. Drains none. Blood loss minimal. The patient was taken to the recovery room in satisfactory addition without apparent complication Parker Lin M.D., F.A.C.S. Surgeon: Parker Lin Type of Anesthesia: General Anesthesiologist: Main Roque
== END 2023-02-20 11:03 | disposition home or self-care (01) ==
LOC: SDC 06:00 → AC 06:01
PROVIDERS: PCP Family Medicine; Referring Provider Surgery; Visit Provider Surgery
PROC: (CPT 47610; principal; 2023-02-20 07:10)
DX: K81.1 Chronic cholecystitis (principal); K21.00 Gastro-esophageal reflux disease with esophagitis, without bleeding; J45.909 Unspecified asthma, uncomplicated
CPT/HCPCS: 47563; 00790; 74300; 76000; 88304; 93005; J7120; J2405

== ENCOUNTER → 2023-09-21 | Outpatient (CLI) | payer OTHER, SELFPAY ==
[2023-09-21 17:54] LABS: Absolute Lymphocyte Count 2.91 X10^3/uL (0.83-4.51); Absolute Neutrophil Count 7.5 X10^3/uL (2.0-7.7); Basophil# 0.06 X10^3/uL; Basophil% 0.5 % (0-1); Eosinophil# 0.25 X10^3/uL; Eosinophils% 2.2 % (0-5); Hematocrit 47.4 % (40-54); Hemoglobin 15.6 g/dL (13.0-16.5); Lymphocyte # 2.91 X10^3/ul (0.83-4.51); Lymphocyte % 25.2 % (19-41); Mean Corp Hgb Conc 32.9 g/dL (32-36); Mean Corpuscular Hgb 29.5 pg (27.0-32.0); Mean Corpuscular Volume 89.6 fL (80-94); Mean Platelet Vol. 9.5 fl (6.2-12.0); Monocyte# 0.78 X10^3/uL; Monocyte% 6.8 % (0-10); NRBC Flagged by Analyzer 0 % (0-5); Neutrophil # 7.45 X10^3/uL (2.7-7.7); Neutrophil % 64.6 % (47-70); Platelet Count 295 K/mm3 (150-450); RBC Distribution Width CV 12.1 % (11.6-14.6); RBC Distribution Width SD 40.4 fl (35.1-43.9); Red Blood Count 5.29 M/mm3 (4.6-6.2); White Blood Count 11.5 K/mm3 (4.4-11.0)
[2023-09-21 18:08] LABS: Erythrocyte Sedimentation Rate 21 mm/hr (0-20)
[2023-09-21 18:40] LABS: ALB/GLOB Ratio 1.1 RATIO (0.9-2.4); AST(SGOT) 47 U/L (15-37); Alanine Aminotransfer ALT/SGPT 85 U/L (16-61); Alkaline Phosphatase 105 U/L (45-117); Anion Gap 7 (5-15); BUN 19 mg/dL (7-18); BUN/Creat Ratio 21.9 RATIO (10-20); CRP 7.12 mg/L (0.0-3.0); Calcium,Total 9.6 mg/dL (8.5-10.1); Chloride 105 mmol/L (98-107); Creatinine, Serum 0.87 mg/dL (0.70-1.30); EST Glomerular Filtration Rate 116 mL/min (>60); Est Glom Filt Rate - Afr Amer 141 mL/min (>60); Globulin 3.8 g/dL (2.2-4.2); Glucose 106 mg/dL (74-106); Potassium 4.4 mmol/L (3.5-5.1); Protein, Total 7.8 g/dL (6.4-8.2); Sodium Level 138 mmol/L (136-145); T4 Free Direct 0.98 ng/dL (0.76-1.46); Thyroid Stim Hormone (TSH) 1.22 uIU/mL (0.358-3.74)
== END | disposition home or self-care (01) ==
LOC: BFHLAB 15:55
PROVIDERS: PCP Nurse Practitioner Family; Visit Provider Nurse Practitioner Family
DX: R63.4 Abnormal weight loss (principal); R61 Generalized hyperhidrosis; R19.4 Change in bowel habit
CPT/HCPCS: 36415; 80053; 84439; 84443; 85025; 85652; 86140

== ENCOUNTER 2024-02-22 06:12 | Emergency (ER) | payer OTHER, SELFPAY ==
[2024-02-22] VITALS (7 sets, daily range): BP systolic 118–147; BP diastolic 68–98; PULSE 57–82; RESP 16–18; TEMP 36.3–36.6; O2SAT 96–100; BMI 21.2
--- NOTE | 2024-02-22 06:35 | MRI_ITS ---
STUDY: MRI LUMBAR SPINE WITHOUT CONTRAST REASON FOR EXAM: Male, 23 years old. back pain radicular pain (left) TECHNIQUE: Standardized fat and water weighted pulse sequences were obtained in the sagittal and axial planes. COMPARISON: CT of abdomen and pelvis dated January 08, 2023. FINDINGS: Normal lumbar lordosis. There is no substantial scoliosis. Normal conus medullaris that terminates at the L1 level. No marrow edema or fracture or compression deformity is present. No visualized pars interarticularis defects or listhesis. T12-L1: Normal endplates. Normal disc height, hydration and morphology. Normal bilateral facet joints. Normal central canal and bilateral lateral recesses. Normal bilateral intervertebral neural foramina. L1-2: Normal endplates. Normal disc height, hydration and morphology. Normal bilateral facet joints. Normal central canal and bilateral lateral recesses. Normal bilateral intervertebral neural foramina. L2-3: Normal endplates. Normal disc height, hydration and morphology. Normal bilateral facet joints. Normal central canal and bilateral lateral recesses. Normal bilateral intervertebral neural foramina. L3-4: Normal endplates. Normal disc height, hydration and morphology. Normal bilateral facet joints. Normal central canal and bilateral lateral recesses. Normal bilateral intervertebral neural foramina. L4-5: Normal endplates. Normal disc height, hydration and morphology. Normal bilateral facet joints. Normal central canal and bilateral lateral recesses. Normal bilateral intervertebral neural foramina. L5-S1: Mild reactive edema is present in the right pedicle/facet joint junction as seen on image /15 series 7 and 06/08 series 10 either due to degeneration or old trauma. No signal abnormality or degenerative changes seen on the left. Normal endplates. Normal disc height, hydration and morphology. Normal central canal and bilateral lateral recesses. Normal right neural foramen. Mild left foraminal stenosis and facet joint hypertrophy Normal visualized sacral ala. Normal visualized paraspinous soft tissue structures. MRI/Spine Lumbar (Routine) IMPRESSION: 1. L5-S1 mild reactive edema is present in the right pedicle/facet joint junction as seen on image series 7 and 06/08 series 10 either due to degeneration or old trauma. No signal abnormality or degenerative changes seen on the left. 2. Mild left foraminal stenosis and facet joint hypertrophy at L5-S1. Electronically Signed: Turner Birmingham MD at 10:50 EDT ,
--- NOTE | 2024-02-22 07:01 | EDS_ITS ---
HPI History of Present Illness Chief Complaint: Back Informant: patient and parent Narrative Narrative: 23-year-old male presenting to the emergency room with back pain. Patient states for a little more than a week he has had pain in the left low back. He notes pain radiating down the leg and into the foot. He notes intermittent foot numbness not tingling. He feels that the foot and leg is weaker than normal. He denies any known trauma. He notes that on he noticed what looked like a bug bite on the left anterior medial ankle. This has become erythematous and at times appears purple particular shower. He notes fever at night and sweats. He noted that he did not see an obvious insect bite him. He denies any tick bites or seeing any ticks on him. He had a similar initial appearing rash in the mid thoracic back which is almost resolved. He is not on any immunosuppressants or regular prescription medicine. He denies any bowel or bladder dysfunction. No history of IVD or malignancy. [facility] Medical History Migraine headache Non-smoker Colitis Abdominal pain Asthma Home Medications ?Medication ?Instructions ?Recorded ?Last Taken ?Type albuterol sulfate 90 mcg/actuation 1 gm inhalation DAILY PRN 01/13/23 Unknown History aerosol inhaler shortness of breath or wheezing fluticasone propionate 110 1 gm inhalation DAILY PRN 01/13/23 Unknown History mcg/actuation HFA aerosol inhaler shortness of breath or wheezing (Flovent HFA) Allergy/AdvReac Type Severity Reaction Status Date / Time No Known Allergies Allergy Verified 02/22/24 06:17 Family History Brother Asthma Father Hypertension CAD (coronary artery disease) Kidney disease Grandfather Diabetes Heart disease CVA (cerebral vascular accident) Grandmother Cancer skin Surgical History Hx laparoscopic cholecystectomy History of esophagogastroduodenoscopy (EGD) History of wisdom tooth extraction Social History Smoking Status: Never smoker substance use type: does not use ROS ROS ED Constitutional Constitutional ED: Reports fever(s) and sweats; Denies chills or weight loss Eyes Eyes: Denies change in vision or diplopia ENT ENT ED: Denies ear pain, rhinorrhea or sore throat Cardiovascular Cardiovascular: Denies chest pain, orthopnea, palpitations or racing heartbeat Respiratory/Chest Respiratory/Chest: Denies cough, dyspnea or orthopnea Gastrointestinal Gastrointestinal: Denies abdominal pain, diarrhea, nausea or vomiting Genitourinary Genitourinary ED: Denies dysuria, hematuria or urinary frequency Musculoskeletal Musculoskeletal: Reports back pain; Denies arthralgias or myalgias Integumentary Reports rash; Denies abscess Neurologic Neurologic: Denies headache(s) or weakness Psychiatric Psychiatric: Denies anxiety, depression, suicidal ideation or suicidal thoughts Endocrine Endocrinology: Denies polydipsia, polyphagia or polyuria Allergic/Immunologic Allergic/Immunologic ED: Denies mouth swelling, tongue swelling or urticaria EXAM Physical Exam Const Vital Signs: 02/22/24 06:14 02/22/24 06:17 Temperature 97.8 F 97.8 F Temperature Source Temporal Temporal Pulse Rate 57 L 63 Respiratory Rate 16 16 Blood Pressure 131/79 H 131/79 H Blood Pressure Mean 96 96 Pulse Ox 100 100 Oxygen Delivery Method Room Air Room Air Positive well nourished and well developed General Appearance ED: well developed and NAD HEENT Reports normocephalic, head/scalp atraumatic and moist mucous membranes Eyes PERRL and EOMs intact bilaterally Neck no lymphadenopathy, supple and no JVD Resp normal respiratory effort and clear to auscultation bilaterally Cardio regular rate, regular rhythm and no murmurs GI normal to inspection, nondistended, normoactive bowel sounds and non-tender Palpation: soft Back/Spine no CVA tenderness and normal ROM Back/Spine Narrative: Tenderness to palpation over the lower left lumbar spinal musculature. I do not appreciate rashes over the lower back. Extremity normal to inspection General Extremety ED: Negative for edema General Extremity: Negative for edema Neuro oriented x3 and CN's II-XII intact bilaterally Neuro Narrative: Patient reports normal sensation of the leg. He appears to have some weakness of dorsiflexion of the left great toe. He is able to stand up on his toes when to get him at the bedside. Quadricep musculature appears intact. DTRs intact Sensorium / Orientation: alert Motor Exam: strength 5/5 throughout Deep Tendon Reflexes: Rt Patellar (L4): 2+, Lt Patellar (L4): 2+, Rt Ankle (S1): 2+ and Lt Ankle (S1): 2+ Deep Tendon Reflexes Back: Rt Patellar (L4): 2+, Lt Patellar (L4): 2+, Rt Ankle (S1): 2+ and Lt Ankle (S1): 2+ Psych mental status grossly normal Mood & Affect: Negative for depressed or tearful Skin no wounds Skin Narrative: There is a 6 cm round area of erythema to the medial anterior right ankle. There is a central area that appears to have fairly normal-appearing skin but does not appear to be classically bull's-eye in nature. The erythema is about dark hue. No lymphangitic streaking. MDM MDM MDM Narrative Medical decision making narrative: Differential of the rash would include but not limited to Lyme disease, cellulitis, local reaction to insect bite. Differential diagnoses the back pain but include lumbar radiculopathy abscess degenerative joint disc herniation and infectious etiologies Basic blood work will be obtained including Lyme screen. MRI was ordered and can be performed later this morning. Blood cultures were also obtained. Care of the patient will be turned over to the oncoming physician for check of labs and MRI. History & Record Review Discussion w/independent historian: Patient and Family Additional record(s) reviewed:: Prior ED visit and Prior labs Discharge Plan Triage Chief Complaint: Back ED Provider: Prasad Gale Dx/Rx/DC Orders Prescriptions: No Action fluticasone propionate [Flovent HFA] 110 mcg/actuation HFA aerosol inhaler 1 gm inhalation DAILY PRN (Reason: shortness of breath or wheezing) albuterol sulfate 90 mcg/actuation HFA aerosol inhaler 1 gm inhalation DAILY PRN (Reason: shortness of breath or wheezing) Primary Care Provider: Tonie Martinez Referrals: Tonie Martinez, [facility] [Primary Care Provider] - Print Language: Kinyarwanda
--- NOTE | 2024-02-22 07:05 | RAD_ITS ---
STUDY: X-RAY CHEST REASON FOR EXAM: Male, 23 years old. fever TECHNIQUE: Single AP portable view of the chest. COMPARISON: July 01, 2022 FINDINGS: The lungs are clear and expanded. There is no demonstrated pleural abnormality. Normal size heart. Normal mediastinum and paras. Normal visualized pulmonary arteries. Normal visualized aortic arch and descending thoracic aorta. Normal visualized thoracic spine. Normal visualized ribs, clavicles, and shoulders. There is no demonstrated abnormality of the visualized soft tissue structures of the upper abdomen. RAD/Chest 1 View (Portable) IMPRESSION: Normal x-ray examination of the chest. Electronically Signed: Turner Birmingham MD at 8:06 EDT ,
[2024-02-22 07:16] LABS: Absolute Lymphocyte Count 2.53 X10^3/uL (0.83-4.51); Absolute Neutrophil Count 4.3 X10^3/uL (2.0-7.7); Basophil# 0.06 X10^3/uL; Basophil% 0.7 % (0-1); Eosinophils% 4.9 % (0-5); Hemoglobin 17.7 g/dL (13.0-16.5); Lymphocyte # 2.53 X10^3/ul (0.83-4.51); Lymphocyte % 30.9 % (19-41); Mean Corp Hgb Conc 33.4 g/dL (32-36); Mean Corpuscular Volume 89.8 fL (80-94); Mean Platelet Vol. 9.2 fl (6.2-12.0); Monocyte# 0.86 X10^3/uL; Monocyte% 10.5 % (0-10); NRBC Flagged by Analyzer 0 % (0-5); Neutrophil # 4.32 X10^3/uL (2.7-7.7); Neutrophil % 52.6 % (47-70); Platelet Count 227 K/mm3 (150-450); RBC Distribution Width CV 12.6 % (11.6-14.6); RBC Distribution Width SD 42.3 fl (35.1-43.9); White Blood Count 8.2 K/mm3 (4.4-11.0)
[2024-02-22 07:36] LABS: AST(SGOT) 26 U/L (15-37); Alanine Aminotransfer ALT/SGPT 31 U/L (16-61); Albumin, Serum 3.8 g/dL (3.2-5.0); Alkaline Phosphatase 102 U/L (45-117); Anion Gap 7 (5-15); BUN 12 mg/dL (7-18); Bilirubin, Direct 0.16 mg/dL (0.00-0.30); Calcium,Total 9.8 mg/dL (8.5-10.1); Chloride 104 mmol/L (98-107); Creatinine, Serum 0.92 mg/dL (0.70-1.30); EST Glomerular Filtration Rate 108 mL/min (>60); Est Glom Filt Rate - Afr Amer 131 mL/min (>60); Estimated Creatinine Clearance 115.34 ml/min; Globulin 3.8 g/dL (2.2-4.2); Glucose 125 mg/dL (74-106); Potassium 3.7 mmol/L (3.5-5.1); Protein, Total 7.6 g/dL (6.4-8.2); Sodium Level 137 mmol/L (136-145)
[2024-02-22] MEDS: Doxycycline 100 MG CAPSULE PO (11:51)
[2024-02-23 15:09] LABS: Lyme IGG CIA Positive (Negative); Lyme IGM CIA Positive (Negative); Lyme Scn Total Ab w/Rflx Positive (Negative)
== END 2024-02-22 11:56 | disposition home or self-care (01) ==
PROVIDERS: Emergency Provider Emergency Medicine; PCP Nurse Practitioner Family; Visit Provider Emergency Medicine
DX: M48.07 Spinal stenosis, lumbosacral region (principal); M79.662 Pain in left lower leg; J45.909 Unspecified asthma, uncomplicated; R21 Rash and other nonspecific skin eruption; S90.562A Insect bite (nonvenomous), left ankle, initial encounter; W57.XXXA Bitten or stung by nonvenomous insect and other nonvenomous arthropods, initial encounter
CPT/HCPCS: 71045; 72148; 80048; 80076; 85025; 86618; 87040; 99283; A4216